=== PATIENT | male | born 1970 | race Caucasian/White ===

== ENCOUNTER 2021-01-03 10:26 | Inpatient (IN) | payer BC ==
--- NOTE | 2021-01-03 10:42 | EDM.PDOC ---
ED HPI GENERAL MEDICAL PROBLEM - General Chief Complaint: Abdominal Pain Stated Complaint: STOMACH PAINS/VOMIT Time Seen by Provider: 01/03/21 11:00 Source of Information: Reports: Patient History Limitations: Reports: No Limitations - History of Present Illness INITIAL COMMENTS - FREE TEXT/NARRATIVE: HISTORY AND PHYSICAL: History of present illness: Patient is a 50-year-old male who presents to the emergency room with complaints of right lower quadrant pain nausea and vomiting since last night. Patient states that the right lower quadrant pain now radiates throughout his abdomen but is more tender in the right lower quadrant. He has persistent nausea with one episode of vomiting last night. Last ate or drink yesterday evening around 7 PM. Patient denies any fever, chills, headache, change in vision, syncope or near syncope. Denies any chest pain, back pain, shortness of breath or cough. Denies any diarrhea, constipation or dysuria. Does not have any testicular pain, redness or swelling. Has not noted any blood in urine or stool. Patient has been eating and drinking appropriately. Review of systems: As per history of present illness and below otherwise all systems reviewed and negative. Past medical history: As per history of present illness and as reviewed below otherwise noncontributory. Surgical history: As per history of present illness and as reviewed below otherwise noncontributory. Social history: See social history for further information Family history: As per history of present illness and as reviewed below otherwise noncontribu tory. Physical exam: General: Well developed and well nourished 50 year old male. Alert and orientated x 3. Nontoxic in appearance and in no acute distress. Vital signs are stable and have been reviewed by me. Nursing notes were reviewed. HEENT: Atraumatic, normocephalic, pupils equal and reactive bilaterally, negative for conjunctival pallor or scleral icterus, mucous membranes moist, trachea midline. No drooling or trismus noted. No meningeal signs. No hot potato voice noted. Lungs: Clear to auscultation bilaterally. No wheezes, rales, or rhonchi. Chest nontender. Normal work of breathing, no accessory muscles used. Heart: S1S2, regular rate and rhythm without overt murmur, gallops, or rubs. No JVD. No peripheral edema Abdomen: Soft, nondistended, tender in all 4 quadrants -worse in the right lower quadrant with rebound tenderness. Normoactive bowel sounds. Negative for masses or costovertebral tenderness. Skin: Intact, warm, dry. No lesions or rashes noted. Hematologic: No petechiae or purpra. Mucosa appropriate color and normal nail bed color and refill. Extremities: Atraumatic, moves all extremities per self without difficulty or deficits, negative for cords or calf pain. Neurovascular unremarkable. Neuro: Awake, alert, oriented. Cranial nerves II through XII unremarkable. Cerebellum unremarkable. Motor and sensory unremarkable throughout. Exam nonfocal. Psychiatric: Mood and affect are appropriate. Normal thought process. Answering questions appropriately. Notes: *This patient was seen and evaluated during the 2019 SARS-CoV-2 novel coronavirus pandemic period. Community viral transmission is ongoing at time of this encounter and the emergency department is operating under pandemic response procedures. Patient is a 50-year-old male who presents to the emergency room with complaints of nausea, 1 episode of vomiting and right lower quadrant pain since yesterday evening. Patient is tender throughout his abdomen but worse to the right lower quadrant with rebound tenderness. He states he last ate or drink yesterday, he was educated on NPO status. We will do a CT of the abdomen and pelvis to rule out appendicitis. CT shows dilated and thickened appendix with adjacent inflammatory stranding consistent with acute appendicitis. Prostatomegaly with diffuse urinary bladder wall thickening. Liver and renal cysts. Dr Villatoro is aware and will see patient. I have talked with the patient about today's findings, in addition to providing specific details for plan of care. Reassessment at the time of disposition demonstrates that the patient is in no acute distress. IV Zosyn ordered. Patient will be Same Day Surgery. Diagnostics: CBC, CMP, UA, lipase, COVID-19, CT abdomen and pelvis Therapeutics: IV fluid, Dilaudid, Zofran, Morphine, Zosyn Impression: Acute Appendicitis Plan: To OR for surgery Definitive disposition and diagnosis as appropriate pending reevaluation and review of above. abd Pain Score (Numeric/FACES): 7 - Related Data Allergies Allergy/AdvReac Type Severity Reaction Status Date / Time No Known Allergies Allergy Verified 01/03/21 11:16 Home Meds: Home Meds . [No Known Home Meds] 01/03/21 [History] ED ROS GENERAL - Review of Systems Review Of Systems: Comprehensive ROS is negative, except as noted in HPI. ED EXAM, GI/ABD - Physical Exam Exam: See Below (See dictation) Course - Vital Signs Last Recorded V/S: Last Vital Signs Temp 98.1 F 01/03/21 16:00 Pulse 82 01/03/21 16:00 Resp 18 01/03/21 16:00 BP 132/78 01/03/21 16:00 Pulse Ox 97 01/03/21 16:00 - Orders/Labs/Meds Orders: Active Orders 24 hr Category Date Time Status Patient Status [ADT] Routine ADT 01/03/21 13:25 Active Blood Glucose Check, Bedside [RC] PRN Care 01/03/21 12:31 Active Intake and Output [RC] Q12H Care 01/03/21 13:26 Active Notify Provider Vital Signs [RC] ASDIRECTED Care 01/03/21 12:31 Active Overnight Pulse Oximetry [RC] Click to Edit Care 01/03/21 12:31 Active Oxygen Therapy [RC] PRN Care 01/03/21 12:31 Active Oxygen Therapy [RC] PRN Care 01/03/21 13:25 Active RT Aerosol Therapy [RC] ASDIRECTED Care 01/03/21 12:31 Active RT Aerosol Therapy [RC] ASDIRECTED Care 01/03/21 12:31 Active RT BiPAP/CPAP [RC] ASDIRECTED Care 01/03/21 12:31 Active RT Incentive Spirometry [RC] Q1HWA Care 01/03/21 13:25 Active Up ad Shireen [RC] ASDIRECTED Care 01/03/21 13:25 Active Verify Patient Consent Obtain [RC] ASDIRECTED Care 01/03/21 12:31 Active Vital Signs [RC] PER UNIT ROUTINE Care 01/03/21 13:25 Active Vital Signs [RC] Q5M Care 01/03/21 12:31 Active Nothing Per Oral Diet [DIET] Diet 01/03/21 Lunch Active Albuterol [Proventil Neb Soln] Med 01/03/21 12:31 Active 2.5 mg NEB ONETIME PRN HYDROmorphone [Dilaudid] Med 01/03/21 12:31 Active 0.5 mg IVPUSH Q10M PRN HYDROmorphone [Dilaudid] Med 01/03/21 13:32 Active 0.5 mg IVPUSH Q1H PRN Lactated Ringers [Ringers, Lactated] 1,000 ml Med 01/03/21 13:30 Active IV ASDIRECTED Lactated Ringers [Ringers, Lactated] 1,000 ml Med 01/03/21 14:00 Active IV ASDIRECTED Metoclopramide [Reglan] Med 01/03/21 12:31 Active 10 mg IVPUSH ONETIME PRN Metoclopramide [Reglan] Med 01/03/21 13:25 Active 10 mg IVPUSH Q6H PRN Morphine Med 01/03/21 12:31 Active 2 mg IVPUSH Q10M PRN Naloxone [Narcan] Med 01/03/21 12:31 Active 0.1 mg IVPUSH ASDIRECTED PRN Ondansetron [Zofran] Med 01/03/21 12:31 Active 4 mg IVPUSH ONETIME PRN Ondansetron [Zofran] Med 01/03/21 13:25 Active 4 mg IVPUSH Q6H PRN Piperacillin/Tazobactam [Piperacil-Tazobact] 3.375 gm Med 01/03/21 20:30 Active Sodium Chloride 0.9% [Normal Saline] 50 ml IV Q6H Promethazine [Phenergan] Med 01/03/21 13:25 Active 25 mg IM Q6H PRN Sodium Chloride 0.9% [Normal Saline] Med 01/03/21 13:25 Active 10 ml IV ASDIRECTED PRN Sodium Chloride 0.9% [Saline Flush] Med 01/03/21 13:25 Active 10 ml FLUSH ASDIRECTED PRN Sodium Chloride 0.9% [Saline Flush] Med 01/03/21 13:25 Active 2.5 ml FLUSH ASDIRECTED PRN diphenhydrAMINE [Benadryl] Med 01/03/21 13:25 Active 50 mg IVPUSH Q4H PRN droperidoL [Inapsine] Med 01/03/21 12:31 Active 0.625 mg IVPUSH ONETIME PRN fentaNYL [Sublimaze] Med 01/03/21 12:31 Active 50 mcg IVPUSH Q5M PRN Medication Administration Instruction [OM.PC] Routine Oth 01/03/21 12:31 Ordered Peripheral IV Insertion Adult [OM.PC] Urgent Oth 01/03/21 13:25 Ordered Pulse Oximetry Continuous Monitoring [OM.PC] Routine Oth 01/03/21 12:31 Ordered Resuscitation Status Routine Resus Stat 01/03/21 13:25 Ordered Medication Orders Albuterol (Albuterol 0.083% 2.5 Mg/3 Ml Neb Soln) 2.5 mg NEB ONETIME PRN PRN Reason: Wheezing Diphenhydramine HCl (Diphenhydramine 50 Mg/Ml Sdv) 50 mg IVPUSH Q4H PRN PRN Reason: Itching Droperidol (Droperidol 5 Mg/2 Ml Sdv) 0.625 mg IVPUSH ONETIME PRN PRN Reason: Nausea/Vomiting Fentanyl (Fentanyl 100 Mcg/2 Ml Sdv) 50 mcg IVPUSH Q5M PRN PRN Reason: Pain (mild 1-3) Hydromorphone HCl (Hydromorphone 2 Mg/Ml Syringe) 0.5 mg IVPUSH Q10M PRN PRN Reason: Pain (moderate 4-6) Hydromorphone HCl (Hydromorphone 1 Mg/Ml Syringe) 0.5 mg IVPUSH Q1H PRN PRN Reason: Pain (severe 7-10) Last Admin: 01/03/21 16:16 Dose: 0.5 mg Documented by: Admin: 01/03/21 14:50 Dose: 0.5 mg Documented by: JOE Lactated Ringer's (Ringers, Lactated) 1,000 mls @ 125 mls/hr IV ASDIRECTED [facility] Piperacillin Sod/Tazobactam (Sod 3.375 gm/ Sodium Chloride) 50 mls @ 100 mls/hr IV Q6H [facility] Lactated Ringer's (Ringers, Lactated) 1,000 mls @ 125 mls/hr IV ASDIRECTED SANDEE Last Admin: 01/03/21 14:48 Dose: 125 mls/hr Documented by: JOE Metoclopramide HCl (Metoclopramide 10 Mg/2 Ml Sdv) 10 mg IVPUSH ONETIME PRN PRN Reason: Nausea/Vomiting Metoclopramide HCl (Metoclopramide 10 Mg/2 Ml Sdv) 10 mg IVPUSH Q6H PRN PRN Reason: Nausea Morphine Sulfate (Morphine 2 Mg/Ml Syringe) 2 mg IVPUSH Q10M PRN PRN Reason: Pain (severe 7-10) Naloxone HCl (Naloxone 0.4 Mg/Ml Syringe) 0.1 mg IVPUSH ASDIRECTED PRN PRN Reason: Respiratory Depression Ondansetron HCl (Ondansetron 4 Mg/2 Ml Sdv) 4 mg IVPUSH ONETIME PRN PRN Reason: Nausea/Vomiting Ondansetron HCl (Ondansetron 4 Mg/2 Ml Sdv) 4 mg IVPUSH Q6H PRN PRN Reason: Nausea/Vomiting Promethazine HCl (Promethazine 25 Mg/Ml Sdv) 25 mg IM Q6H PRN PRN Reason: Nausea Sodium Chloride (Sodium Chloride 0.9% 10 Ml Syringe) 10 ml FLUSH ASDIRECTED PRN PRN Reason: Keep Vein Open Sodium Chloride (Sodium Chloride 0.9% 2.5 Ml Syringe) 2.5 ml FLUSH ASDIRECTED PRN PRN Reason: Keep Vein Open Sodium Chloride (Sodium Chloride 0.9% 10 Ml Sdv) 10 ml IV ASDIRECTED PRN PRN Reason: IV Use Labs: Laboratory Tests 01/03/21 01/03/21 01/03/21 Range/Units 11:04 11:04 11:20 WBC 17.57 H (4.0-11.0) K/uL RBC 4.84 (4.50-5.90) M/uL Hgb 15.9 (13.0-17.0) g/dL Hct 45.3 (38.0-50.0) % MCV 93.6 (80.0-98.0) fL MCH 32.9 H (27.0-32.0) pg MCHC 35.1 (31.0-37.0) g/dL RDW Std Deviation 43.1 (28.0-62.0) fl RDW Coeff of Ben 13 (11.0-15.0) % Plt Count 307 (150-400) K/uL MPV 9.20 (7.40-12.00) fL Neut % (Auto) 87.7 H (48.0-80.0) % Lymph % (Auto) 5.7 L (16.0-40.0) % Steele % (Auto) 6.5 (0.0-15.0) % Eos % (Auto) 0.0 (0.0-7.0) % Baso % (Auto) 0.1 (0.0-1.5) % Neut # (Auto) 15.4 H (1.4-5.7) K/uL Lymph # (Auto) 1.0 (0.6-2.4) K/uL [place] # (Auto) 1.1 H (0.0-0.8) K/uL Eos # (Auto) 0.0 (0.0-0.7) K/uL Baso # (Auto) 0.0 (0.0-0.1) K/uL Nucleated RBC % 0.0 /100WBC Nucleated RBCs # 0 K/uL Sodium 138 (136-148) mmol/L Potassium 4.2 (3.5-5.1) mmol/L Chloride 101 (98-107) mmol/L Carbon Dioxide 27.3 (21.0-32.0) mmol/L BUN 17 (7.0-18.0) mg/dL Creatinine 1.1 (0.8-1.3) mg/dL Est Cr Clr Drug Dosing TNP Estimated GFR (MDRD) > 60.0 ml/min Glucose 114 H (74-106) mg/dL Calcium 9.5 (8.5-10.1) mg/dL Total Bilirubin 1.0 (0.2-1.0) mg/dL AST 34 (15-37) IU/L ALT 57 (14-63) IU/L Alkaline Phosphatase 81 (46-116) U/L Total Protein 8.4 H (6.4-8.2) g/dL Albumin 4.4 (3.4-5.0) g/dL Globulin 4.0 (2.6-4.0) g/dL Albumin/Globulin Ratio 1.1 (0.9-1.6) Lipase 44 L (73-393) U/L Urine Color YELLOW Urine Appearance HAZY Urine pH 7.0 (5.0-8.0) Ur Specific [place] 1.025 (1.001-1.035) Urine Protein TRACE H (NEGATIVE) mg/dL Urine Glucose (UA) NEGATIVE (NEGATIVE) mg/dL Urine Ketones NEGATIVE (NEGATIVE) mg/dL Urine Occult Blood SMALL H (NEGATIVE) Urine Nitrite NEGATIVE (NEGATIVE) Urine Bilirubin NEGATIVE (NEGATIVE) Urine Urobilinogen 0.2 (<2.0) EU/dL Ur Leukocyte Esterase NEGATIVE (NEGATIVE) Urine RBC 3-5 (0-2/HPF) Urine WBC 0-1 (0-5/HPF) Ur Epithelial Cells RARE (NONE-FEW) Urine Bacteria FEW (NEGATIVE) SARS-CoV-2 RNA (RICHARD) (NEGATIVE) 01/03/21 Range/Units 11:26 WBC (4.0-11.0) K/uL RBC (4.50-5.90) M/uL Hgb (13.0-17.0) g/dL Hct (38.0-50.0) % MCV (80.0-98.0) fL MCH (27.0-32.0) pg MCHC (31.0-37.0) g/dL RDW Std Deviation (28.0-62.0) fl RDW Coeff of Ben (11.0-15.0) % Plt Count (150-400) K/uL MPV (7.40-12.00) fL Neut % (Auto) (48.0-80.0) % Lymph % (Auto) (16.0-40.0) % Steele % (Auto) (0.0-15.0) % Eos % (Auto) (0.0-7.0) % Baso % (Auto) (0.0-1.5) % Neut # (Auto) (1.4-5.7) K/uL Lymph # (Auto) (0.6-2.4) K/uL [place] # (Auto) (0.0-0.8) K/uL Eos # (Auto) (0.0-0.7) K/uL Baso # (Auto) (0.0-0.1) K/uL Nucleated RBC % /100WBC Nucleated RBCs # K/uL Sodium (136-148) mmol/L Potassium (3.5-5.1) mmol/L Chloride (98-107) mmol/L Carbon Dioxide (21.0-32.0) mmol/L BUN (7.0-18.0) mg/dL Creatinine (0.8-1.3) mg/dL Est Cr Clr Drug Dosing Estimated GFR (MDRD) ml/min Glucose (74-106) mg/dL Calcium (8.5-10.1) mg/dL Total Bilirubin (0.2-1.0) mg/dL AST (15-37) IU/L ALT (14-63) IU/L Alkaline Phosphatase (46-116) U/L Total Protein (6.4-8.2) g/dL Albumin (3.4-5.0) g/dL Globulin (2.6-4.0) g/dL Albumin/Globulin Ratio (0.9-1.6) Lipase (73-393) U/L Urine Color Urine Appearance Urine pH (5.0-8.0) Ur Specific [place] (1.001-1.035) Urine Protein (NEGATIVE) mg/dL Urine Glucose (UA) (NEGATIVE) mg/dL Urine Ketones (NEGATIVE) mg/dL Urine Occult Blood (NEGATIVE) Urine Nitrite (NEGATIVE) Urine Bilirubin (NEGATIVE) Urine Urobilinogen (<2.0) EU/dL Ur Leukocyte Esterase (NEGATIVE) Urine RBC (0-2/HPF) Urine WBC (0-5/HPF) Ur Epithelial Cells (NONE-FEW) Urine Bacteria (NEGATIVE) SARS-CoV-2 RNA (RICHARD) NEGATIVE (NEGATIVE) Meds: Medications Generic Name Dose Route Start Last Admin Trade Name Freq PRN Reason Stop Dose Admin Albuterol 2.5 mg 01/03/21 12:31 Albuterol 0.083% 2.5 Mg/3 Ml Neb Soln NEB ONETIME PRN Wheezing Diphenhydramine HCl 50 mg 01/03/21 13:25 Diphenhydramine 50 Mg/Ml Sdv IVPUSH Q4H PRN Itching Droperidol 0.625 mg 01/03/21 12:31 Droperidol 5 Mg/2 Ml Sdv IVPUSH ONETIME PRN Nausea/Vomiting Fentanyl 50 mcg 01/03/21 12:31 Fentanyl 100 Mcg/2 Ml Sdv IVPUSH Q5M PRN Pain (mild 1-3) Hydromorphone HCl 0.5 mg 01/03/21 12:31 Hydromorphone 2 Mg/Ml Syringe IVPUSH Q10M PRN Pain (moderate 4-6) Hydromorphone HCl 0.5 mg 01/03/21 13:32 01/03/21 16:16 Hydromorphone 1 Mg/Ml Syringe IVPUSH 0.5 mg Q1H PRN Administration Pain (severe 7-10) Lactated Ringer's 1,000 mls @ 125 mls/hr 01/03/21 13:30 Ringers, Lactated IV ASDIRECTED SANDEE Piperacillin Sod/Tazobactam 50 mls @ 100 mls/hr 01/03/21 20:30 Sod 3.375 gm/ Sodium Chloride IV Q6H [facility] Lactated Ringer's 1,000 mls @ 125 mls/hr 01/03/21 14:00 01/03/21 14:48 Ringers, Lactated IV 125 mls/hr ASDIRECTED SANDEE Administration Metoclopramide HCl 10 mg 01/03/21 12:31 Metoclopramide 10 Mg/2 Ml Sdv IVPUSH ONETIME PRN Nausea/Vomiting Metoclopramide HCl 10 mg 01/03/21 13:25 Metoclopramide 10 Mg/2 Ml Sdv IVPUSH Q6H PRN Nausea Morphine Sulfate 2 mg 01/03/21 12:31 Morphine 2 Mg/Ml Syringe IVPUSH Q10M PRN Pain (severe 7-10) Naloxone HCl 0.1 mg 01/03/21 12:31 Naloxone 0.4 Mg/Ml Syringe IVPUSH ASDIRECTED PRN Respiratory Depression Ondansetron HCl 4 mg 01/03/21 12:31 Ondansetron 4 Mg/2 Ml Sdv IVPUSH ONETIME PRN Nausea/Vomiting Ondansetron HCl 4 mg 01/03/21 13:25 Ondansetron 4 Mg/2 Ml Sdv IVPUSH Q6H PRN Nausea/Vomiting Promethazine HCl 25 mg 01/03/21 13:25 Promethazine 25 Mg/Ml Sdv IM Q6H PRN Nausea Sodium Chloride 10 ml 01/03/21 13:25 Sodium Chloride 0.9% 10 Ml Syringe FLUSH ASDIRECTED PRN Keep Vein Open Sodium Chloride 2.5 ml 01/03/21 13:25 Sodium Chloride 0.9% 2.5 Ml Syringe FLUSH ASDIRECTED PRN Keep Vein Open Sodium Chloride 10 ml 01/03/21 13:25 Sodium Chloride 0.9% 10 Ml Sdv IV ASDIRECTED PRN IV Use Discontinued Medications Generic Name Dose Route Start Last Admin Trade Name Freq PRN Reason Stop Dose Admin Bupivacaine HCl Confirm 01/03/21 15:33 Bupivacaine 0.5% 30 Ml Sdv Administered 01/03/21 15:34 Dose 30 ml .ROUTE .STK-MED ONE Fentanyl Confirm 01/03/21 16:11 Fentanyl 250 Mcg/5 Ml Sdv Administered 01/03/21 16:12 Dose 250 mcg .ROUTE .STK-MED ONE Glycopyrrolate Confirm 01/03/21 16:12 Glycopyrrolate 0.2 Mg/Ml Sdv Administered 01/03/21 16:13 Dose 0.2 mg .ROUTE .STK-MED ONE Hydromorphone HCl 1 mg 01/03/21 10:51 01/03/21 11:08 Hydromorphone 1 Mg/Ml Syringe IVPUSH 01/03/21 10:52 1 mg ONETIME ONE Administration Sodium Chloride 1,000 mls @ 999 mls/hr 01/03/21 10:51 01/03/21 11:08 Normal Saline IV 01/03/21 11:51 999 mls/hr STAT ONE Administration Piperacillin Sod/Tazobactam 50 mls @ 100 mls/hr 01/03/21 13:01 01/03/21 14:10 Sod 3.375 gm/ Sodium Chloride IV 01/03/21 13:30 100 mls/hr ONETIME ONE Administration Ketorolac Tromethamine Confirm 01/03/21 16:12 Ketorolac 30 Mg/Ml Sdv Administered 01/03/21 16:13 Dose 30 mg .ROUTE .STK-MED ONE Lidocaine Confirm 01/03/21 16:12 Lidocaine 2% 5 Ml Sdv Administered 01/03/21 16:13 Dose 5 ml .ROUTE .STK-MED ONE Midazolam HCl Confirm 01/03/21 16:11 Midazolam 1 Mg/Ml 2 Ml Sdv Administered 01/03/21 16:12 Dose 2 mg .ROUTE .STK-MED ONE Morphine Sulfate 4 mg 01/03/21 12:49 01/03/21 13:07 Morphine 4 Mg/Ml Syringe IVPUSH 01/03/21 12:50 4 mg ONETIME ONE Administration Octyl Cyanoacrylate Confirm 01/03/21 15:33 Octyl 2-Cyanoacrylate 1 Tube Administered 01/03/21 15:34 Dose 1 applic .ROUTE .STK-MED ONE Ondansetron HCl 4 mg 01/03/21 10:51 01/03/21 11:08 Ondansetron 4 Mg/2 Ml Sdv IVPUSH 01/03/21 10:52 4 mg ONETIME ONE Administration Ondansetron HCl 4 mg 01/03/21 12:49 01/03/21 13:12 Ondansetron 4 Mg/2 Ml Sdv IVPUSH 01/03/21 12:50 4 mg ONETIME ONE Administration Ondansetron HCl Confirm 01/03/21 16:12 Ondansetron 4 Mg/2 Ml Sdv Administered 01/03/21 16:13 Dose 4 mg .ROUTE .STK-MED ONE Propofol Confirm 01/03/21 16:11 Propofol 200 Mg/20 Ml Sdv Administered 01/03/21 16:12 Dose 200 mg .ROUTE .STK-MED ONE Rocuronium [place] Confirm 01/03/21 16:12 Rocuronium [place] 50 Mg/5 Ml Syringe Administered 01/03/21 16:13 Dose 50 mg .ROUTE .STK-MED ONE Scopolamine 1.5 mg 01/03/21 15:45 01/03/21 16:08 Scopolamine 1.5 Mg Transdermal Patch TRDERM 01/03/21 15:46 1.5 mg ONETIME ONE Administration Sugammadex Sodium Confirm 01/03/21 16:12 Sugammadex Sodium 200 Mg/2 Ml Vial Administered 01/03/21 16:13 Dose 200 mg .ROUTE .STK-MED ONE Departure - Departure Time of Disposition: 17:09 Disposition: Still A Patient 30 Clinical Impression: Appendicitis - Discharge Information Sepsis Event Note (ED) - Focused Exam Vital Signs: Vital Signs Temp Pulse Resp BP Pulse Ox Pulse Ox 01/03/21 16:00 98.1 F 82 18 132/78 97 01/03/21 14:28 98 01/03/21 12:31 73 16 106/64 98 01/03/21 11:17 96.4 F L 80 16 135/91 H 96 - My Orders Last 24 Hours: My Active Orders 01/03/21 14:00 Lactated Ringers [Ringers, Lactated] 1,000 ml IV ASDIRECTED - Assessment/Plan Last 24 Hours: My Active Orders 01/03/21 14:00 Lactated Ringers [Ringers, Lactated] 1,000 ml IV ASDIRECTED
[2021-01-03] MEDS ORDERED: Sodium Chloride 0.9% 1,000 ML IV ONE (10:51)
[2021-01-03] MEDS ORDERED: Ondansetron 4 MG/2 ML SDV IVPUSH ONE ×2 (10:51→12:49)
[2021-01-03] MEDS ORDERED: HYDROmorphone 1 MG/ML Syringe IVPUSH ONE (10:51)
[2021-01-03 11:42] LABS: BLOOD UREA NITROGEN,BUN 17 mg/dL (7.0-18.0); CARBON DIOXIDE,CO2 27.3 mmol/L (21.0-32.0); CHLORIDE,CL 101 mmol/L (98-107); GLUCOSE RANDOM 114 mg/dL (74-106); LIPASE 44 U/L (73-393); POTASSIUM,K 4.2 mmol/L (3.5-5.1); SODIUM,NA 138 mmol/L (136-148)
[2021-01-03] MEDS ORDERED: Morphine 2 MG/ML SYRINGE IVPUSH PRN (12:31)
[2021-01-03] MEDS ORDERED: Metoclopramide 10 MG/2 ML SDV IVPUSH PRN ×2 (12:31→13:25)
[2021-01-03] MEDS ORDERED: Albuterol 0.083% 2.5 MG/3 ML Neb Soln NEB PRN (12:31)
[2021-01-03] MEDS ORDERED: fentaNYL 100 MCG/2 ML SDV IVPUSH PRN ×2 (12:31→17:28)
[2021-01-03] MEDS ORDERED: Scopolamine 1.5 MG Transdermal Patch TRDERM ONE ×2 (12:31→15:45)
[2021-01-03] MEDS ORDERED: Naloxone 0.4 MG/ML Syringe IVPUSH PRN (12:31)
[2021-01-03] MEDS ORDERED: HYDROmorphone 2 MG/ML Syringe IVPUSH PRN (12:31)
[2021-01-03] MEDS ORDERED: Ondansetron 4 MG/2 ML SDV IVPUSH PRN (12:31)
[2021-01-03] MEDS ORDERED: Morphine 4 MG/ML Syringe IVPUSH ONE (12:49)
[2021-01-03] MEDS ORDERED: Piperacillin/Tazobactam 3.375 GM in Sodium Chloride 0.9% 50 ML IV ONE (13:01)
--- NOTE | 2021-01-03 13:10 | PCM.PREANE ---
Preanesthetic Assessment - Anesthesia/Transfusion/Family Hx Anesthesia History: Prior Anesthesia Without Reaction Family History of Anesthesia Reaction: No Transfusion History: No Prior Transfusion(s) - Review of Systems General: No Symptoms Pulmonary: No Symptoms Cardiovascular: No Symptoms Gastrointestinal: Abdominal Pain, Nausea Neurological: No Symptoms Other: Reports: None - Physical Assessment NPO Status Date: 01/03/21 NPO Status Time: 06:00 Vital Signs: Last Vital Signs Temp 96.4 F L 01/03/21 11:17 Pulse 73 01/03/21 12:31 Resp 16 01/03/21 12:31 BP 106/64 01/03/21 12:31 Pulse Ox 98 01/03/21 12:31 Weight: 180 lb ASA Class: 2E Mental Status: Alert & Oriented x3 Airway Class: Mallampati = 2 Dentition: Reports: Normal Dentition ROM/Head Extension: Full Lungs: Clear to Auscultation, Normal Respiratory Effort Cardiovascular: Regular Rate, Regular Rhythm - Lab Values: Laboratory Last Values WBC 17.57 K/uL (4.0-11.0) H 01/03/21 11:04 RBC 4.84 M/uL (4.50-5.90) 01/03/21 11:04 Hgb 15.9 g/dL (13.0-17.0) 01/03/21 11:04 Hct 45.3 % (38.0-50.0) 01/03/21 11:04 MCV 93.6 fL (80.0-98.0) 01/03/21 11:04 MCH 32.9 pg (27.0-32.0) H 01/03/21 11:04 MCHC 35.1 g/dL (31.0-37.0) 01/03/21 11:04 RDW Std Deviation 43.1 fl (28.0-62.0) 01/03/21 11:04 RDW Coeff of Ben 13 % (11.0-15.0) 01/03/21 11:04 Plt Count 307 K/uL (150-400) 01/03/21 11:04 MPV 9.20 fL (7.40-12.00) 01/03/21 11:04 Neut % (Auto) 87.7 % (48.0-80.0) H 01/03/21 11:04 Lymph % (Auto) 5.7 % (16.0-40.0) L 01/03/21 11:04 [place] % (Auto) 6.5 % (0.0-15.0) 01/03/21 11:04 Eos % (Auto) 0.0 % (0.0-7.0) 01/03/21 11:04 Baso % (Auto) 0.1 % (0.0-1.5) 01/03/21 11:04 Neut # (Auto) 15.4 K/uL (1.4-5.7) H 01/03/21 11:04 Lymph # (Auto) 1.0 K/uL (0.6-2.4) 01/03/21 11:04 [place] # (Auto) 1.1 K/uL (0.0-0.8) H 01/03/21 11:04 Eos # (Auto) 0.0 K/uL (0.0-0.7) 01/03/21 11:04 Baso # (Auto) 0.0 K/uL (0.0-0.1) 01/03/21 11:04 Nucleated RBC % 0.0 /100WBC 01/03/21 11:04 Nucleated RBCs # 0 K/uL 01/03/21 11:04 Sodium 138 mmol/L (136-148) 01/03/21 11:04 Potassium 4.2 mmol/L (3.5-5.1) 01/03/21 11:04 Chloride 101 mmol/L (98-107) 01/03/21 11:04 Carbon Dioxide 27.3 mmol/L (21.0-32.0) 01/03/21 11:04 BUN 17 mg/dL (7.0-18.0) 01/03/21 11:04 Creatinine 1.1 mg/dL (0.8-1.3) 01/03/21 11:04 Est Cr Clr Drug Dosing TNP 01/03/21 11:04 Estimated GFR (MDRD) > 60.0 ml/min 01/03/21 11:04 Glucose 114 mg/dL (74-106) H 01/03/21 11:04 Calcium 9.5 mg/dL (8.5-10.1) 01/03/21 11:04 Total Bilirubin 1.0 mg/dL (0.2-1.0) 01/03/21 11:04 AST 34 IU/L (15-37) 01/03/21 11:04 ALT 57 IU/L (14-63) 01/03/21 11:04 Alkaline Phosphatase 81 U/L (46-116) 01/03/21 11:04 Total Protein 8.4 g/dL (6.4-8.2) H 01/03/21 11:04 Albumin 4.4 g/dL (3.4-5.0) 01/03/21 11:04 Globulin 4.0 g/dL (2.6-4.0) 01/03/21 11:04 Albumin/Globulin Ratio 1.1 (0.9-1.6) 01/03/21 11:04 Lipase 44 U/L (73-393) L 01/03/21 11:04 Urine Color YELLOW 01/03/21 11:20 Urine Appearance HAZY 01/03/21 11:20 Urine pH 7.0 (5.0-8.0) 01/03/21 11:20 Ur Specific [place] 1.025 (1.001-1.035) 01/03/21 11:20 Urine Protein TRACE mg/dL (NEGATIVE) H 01/03/21 11:20 Urine Glucose (UA) NEGATIVE mg/dL (NEGATIVE) 01/03/21 11:20 Urine Ketones NEGATIVE mg/dL (NEGATIVE) 01/03/21 11:20 Urine Occult Blood SMALL (NEGATIVE) H 01/03/21 11:20 Urine Nitrite NEGATIVE (NEGATIVE) 01/03/21 11:20 Urine Bilirubin NEGATIVE (NEGATIVE) 01/03/21 11:20 Urine Urobilinogen 0.2 EU/dL (<2.0) 01/03/21 11:20 Ur Leukocyte Esterase NEGATIVE (NEGATIVE) 01/03/21 11:20 Urine RBC 3-5 (0-2/HPF) 01/03/21 11:20 Urine WBC 0-1 (0-5/HPF) 01/03/21 11:20 Ur Epithelial Cells RARE (NONE-FEW) 01/03/21 11:20 Urine Bacteria FEW (NEGATIVE) 01/03/21 11:20 SARS-CoV-2 RNA (RICHARD) NEGATIVE (NEGATIVE) 01/03/21 11:26 - Allergies Allergies/Adverse Reactions: Allergies Allergy/AdvReac Type Severity Reaction Status Date / Time No Known Allergies Allergy Verified 01/03/21 11:16 - Acknowledgements Anesthesia Type Planned: General Anesthesia Pt an Appropriate Candidate for the Planned Anesthesia: Yes Alternatives and Risks of Anesthesia Discussed w Pt/Guardian: Yes Pt/Guardian Understands and Agrees with Anesthesia Plan: Yes PreAnesthesia Questionnaire - Past Health History Medical/Surgical History: Denies Medical/Surgical History - Infectious Disease History Infectious Disease History: Reports: Chicken Pox - SUBSTANCE USE Tobacco Use Within Last Twelve Months: Cigarettes - HOME MEDS Home Medications: Home Meds . [No Known Home Meds] 01/03/21 [History] - CURRENT (IN HOUSE) MEDS Current Meds: Current Medications Albuterol (Albuterol 0.083% 2.5 Mg/3 Ml Neb Soln) 2.5 mg NEB ONETIME PRN PRN Reason: Wheezing Droperidol (Droperidol 5 Mg/2 Ml Sdv) 0.625 mg IVPUSH ONETIME PRN PRN Reason: Nausea/Vomiting Fentanyl (Fentanyl 100 Mcg/2 Ml Sdv) 50 mcg IVPUSH Q5M PRN PRN Reason: Pain (mild 1-3) Hydromorphone HCl (Hydromorphone 2 Mg/Ml Syringe) 0.5 mg IVPUSH Q10M PRN PRN Reason: Pain (moderate 4-6) Piperacillin Sod/Tazobactam (Sod 3.375 gm/ Sodium Chloride) 50 mls @ 100 mls/hr IV ONETIME ONE Stop: 01/03/21 13:30 Metoclopramide HCl (Metoclopramide 10 Mg/2 Ml Sdv) 10 mg IVPUSH ONETIME PRN PRN Reason: Nausea/Vomiting Morphine Sulfate (Morphine 2 Mg/Ml Syringe) 2 mg IVPUSH Q10M PRN PRN Reason: Pain (severe 7-10) Naloxone HCl (Naloxone 0.4 Mg/Ml Syringe) 0.1 mg IVPUSH ASDIRECTED PRN PRN Reason: Respiratory Depression Ondansetron HCl (Ondansetron 4 Mg/2 Ml Sdv) 4 mg IVPUSH ONETIME PRN PRN Reason: Nausea/Vomiting Discontinued Medications Hydromorphone HCl (Hydromorphone 1 Mg/Ml Syringe) 1 mg IVPUSH ONETIME ONE Stop: 01/03/21 10:52 Last Admin: 01/03/21 11:08 Dose: 1 mg Documented by: Sodium Chloride (Normal Saline) 1,000 mls @ 999 mls/hr IV STAT ONE Stop: 01/03/21 11:51 Last Admin: 01/03/21 11:08 Dose: 999 mls/hr Documented by: Morphine Sulfate (Morphine 4 Mg/Ml Syringe) 4 mg IVPUSH ONETIME ONE Stop: 01/03/21 12:50 Ondansetron HCl (Ondansetron 4 Mg/2 Ml Sdv) 4 mg IVPUSH ONETIME ONE Stop: 01/03/21 10:52 Last Admin: 01/03/21 11:08 Dose: 4 mg Documented by: Ondansetron HCl (Ondansetron 4 Mg/2 Ml Sdv) 4 mg IVPUSH ONETIME ONE Stop: 01/03/21 12:50 Scopolamine (Scopolamine 1.5 Mg Transdermal Patch) 0 mg TRDERM ONETIME ONE Stop: 01/03/21 12:32
--- NOTE | 2021-01-03 13:10 | CT ---
INDICATION: Lower quadrant pain TECHNIQUE: CT abdomen and pelvis acquired with IV contrast. 100 cc Omnipaque [id number] COMPARISON: None FINDINGS: Lower chest: Unremarkable. Liver: 1.0 centimeter right liver cyst. Spleen: Unremarkable. Pancreas: Unremarkable. Gallbladder and bile ducts: Unremarkable. Kidneys: Bilateral renal cysts. Adrenal glands: Unremarkable. GI tract: Unremarkable. Dilated thick-walled appendix measuring up to 14.0 centimeters in diameter with adjacent inflammatory stranding consistent with acute appendicitis. Probable appendicolith. Vascular structures: Unremarkable. Lymph nodes: Unremarkable. Miscellaneous: Unremarkable. No free air or significant free fluid. Pelvic Organs: Prostatomegaly with diffuse urinary bladder wall thickening. Bones: Unremarkable for age. IMPRESSION: Dilated and thickened appendix with adjacent inflammatory stranding consistent with acute appendicitis. Prostatomegaly with diffuse urinary bladder wall thickening. Liver and renal cysts. Please note that all CT scans at this facility use dose modulation, iterative reconstruction, and/or weight-based dosing when appropriate to reduce radiation dose to as low as reasonably achievable. Dictated by Colby Stearns MD @ 01/03/2021 1:08:[address] Colby Stearns @ Jan 03 2021 1:08PM
[2021-01-03] MEDS ORDERED: Sodium Chloride 0.9% 2.5 ML Syringe FLUSH PRN (13:25)
[2021-01-03] MEDS ORDERED: diphenhydrAMINE 50 MG/ML SDV IVPUSH PRN (13:25)
[2021-01-03] MEDS ORDERED: Sodium Chloride 0.9% 10 ML Syringe FLUSH PRN (13:25)
[2021-01-03] MEDS ORDERED: Promethazine 25 MG/ML SDV IM PRN (13:25)
[2021-01-03] MEDS ORDERED: Sodium Chloride 0.9% 10 ML SDV IV PRN (13:25)
--- NOTE | 2021-01-03 13:29 | PCM.HP.2 ---
H&P History of Present Illness - General Date of Service: 01/03/21 Admit Problem/Dx: Admission Diagnosis/Problem Admission Diagnosis/Problem Appendicitis Source of Information: Patient History Limitations: Reports: No Limitations - History of Present Illness Initial Comments - Free Text/Narative: 50-year-old male who presented to the emergency room with complaints of right l ower quadrant pain nausea and vomiting since last night. He has persistent nausea with one episode of vomiting last night. Patient denies any fever, chills. Pain became more severe and located in the right lower quadrant. He came to the ER. His CT scan showed an enlarged and inflamed appendix consistent with acute appendicitis. His WBC was elevated with a left shift. He was incidentally found to have an enlarged prostate. abd Pain Score (Numeric/FACES): 7 - Related Data Allergies/Adverse Reactions: Allergies Allergy/AdvReac Type Severity Reaction Status Date / Time No Known Allergies Allergy Verified 01/03/21 11:16 Home Medications: Home Meds . [No Known Home Meds] 01/03/21 [History] Past Medical History - Past Health History Medical/Surgical History: Denies Medical/Surgical History - Infectious Disease History Infectious Disease History: Reports: Chicken Pox - Past Surgical History HEENT Surgical History: Reports: Other (See Below) (wisdom teeth) Social & Family History - Family History Family Medical History: No Pertinent Family History H&P Review of Systems - Review of Systems: Review Of Systems: Comprehensive ROS is negative, except as noted in HPI. Exam - Exam Exam: See Below - Vital Signs Vital Signs: Last Vital Signs Temp 35.8 C L 01/03/21 11:17 Pulse 73 01/03/21 12:31 Resp 16 01/03/21 12:31 BP 106/64 01/03/21 12:31 Pulse Ox 98 01/03/21 12:31 Weight: 81.647 kg - Exam Quality Assessment: Supplemental Oxygen General: Alert, Oriented, Mild Distress HEENT: Conjunctiva Clear, Mucosa Moist & [place], Posterior Pharynx Clear Lungs: Clear to Auscultation, Normal Respiratory Effort Cardiovascular: Regular Rate, Regular Rhythm GI/Abdominal Exam: Soft, Other (Small hernia at umbilicus. Tender with rebound in RLQ. ) - Patient Data Lab Results Last 24 hrs: Laboratory Results - last 24 hr 01/03/21 01/03/21 01/03/21 Range/Units 11:04 11:04 11:20 WBC 17.57 H (4.0-11.0) K/uL RBC 4.84 (4.50-5.90) M/uL Hgb 15.9 (13.0-17.0) g/dL Hct 45.3 (38.0-50.0) % MCV 93.6 (80.0-98.0) fL MCH 32.9 H (27.0-32.0) pg MCHC 35.1 (31.0-37.0) g/dL RDW Std Deviation 43.1 (28.0-62.0) fl RDW Coeff of Ben 13 (11.0-15.0) % Plt Count 307 (150-400) K/uL MPV 9.20 (7.40-12.00) fL Neut % (Auto) 87.7 H (48.0-80.0) % Lymph % (Auto) 5.7 L (16.0-40.0) % [place] % (Auto) 6.5 (0.0-15.0) % Eos % (Auto) 0.0 (0.0-7.0) % Baso % (Auto) 0.1 (0.0-1.5) % Neut # (Auto) 15.4 H (1.4-5.7) K/uL Lymph # (Auto) 1.0 (0.6-2.4) K/uL [place] # (Auto) 1.1 H (0.0-0.8) K/uL Eos # (Auto) 0.0 (0.0-0.7) K/uL Baso # (Auto) 0.0 (0.0-0.1) K/uL Nucleated RBC % 0.0 /100WBC Nucleated RBCs # 0 K/uL Sodium 138 (136-148) mmol/L Potassium 4.2 (3.5-5.1) mmol/L Chloride 101 (98-107) mmol/L Carbon Dioxide 27.3 (21.0-32.0) mmol/L BUN 17 (7.0-18.0) mg/dL Creatinine 1.1 (0.8-1.3) mg/dL Est Cr Clr Drug Dosing TNP Estimated GFR (MDRD) > 60.0 ml/min Glucose 114 H (74-106) mg/dL Calcium 9.5 (8.5-10.1) mg/dL Total Bilirubin 1.0 (0.2-1.0) mg/dL AST 34 (15-37) IU/L ALT 57 (14-63) IU/L Alkaline Phosphatase 81 (46-116) U/L Total Protein 8.4 H (6.4-8.2) g/dL Albumin 4.4 (3.4-5.0) g/dL Globulin 4.0 (2.6-4.0) g/dL Albumin/Globulin Ratio 1.1 (0.9-1.6) Lipase 44 L (73-393) U/L Urine Color YELLOW Urine Appearance HAZY Urine pH 7.0 (5.0-8.0) Ur Specific [place] 1.025 (1.001-1.035) Urine Protein TRACE H (NEGATIVE) mg/dL Urine Glucose (UA) NEGATIVE (NEGATIVE) mg/dL Urine Ketones NEGATIVE (NEGATIVE) mg/dL Urine Occult Blood SMALL H (NEGATIVE) Urine Nitrite NEGATIVE (NEGATIVE) Urine Bilirubin NEGATIVE (NEGATIVE) Urine Urobilinogen 0.2 (<2.0) EU/dL Ur Leukocyte Esterase NEGATIVE (NEGATIVE) Urine RBC 3-5 (0-2/HPF) Urine WBC 0-1 (0-5/HPF) Ur Epithelial Cells RARE (NONE-FEW) Urine Bacteria FEW (NEGATIVE) SARS-CoV-2 RNA (RICHARD) (NEGATIVE) 01/03/21 Range/Units 11:26 WBC (4.0-11.0) K/uL RBC (4.50-5.90) M/uL Hgb (13.0-17.0) g/dL Hct (38.0-50.0) % MCV (80.0-98.0) fL MCH (27.0-32.0) pg MCHC (31.0-37.0) g/dL RDW Std Deviation (28.0-62.0) fl RDW Coeff of Ben (11.0-15.0) % Plt Count (150-400) K/uL MPV (7.40-12.00) fL Neut % (Auto) (48.0-80.0) % Lymph % (Auto) (16.0-40.0) % [place] % (Auto) (0.0-15.0) % Eos % (Auto) (0.0-7.0) % Baso % (Auto) (0.0-1.5) % Neut # (Auto) (1.4-5.7) K/uL Lymph # (Auto) (0.6-2.4) K/uL [place] # (Auto) (0.0-0.8) K/uL Eos # (Auto) (0.0-0.7) K/uL Baso # (Auto) (0.0-0.1) K/uL Nucleated RBC % /100WBC Nucleated RBCs # K/uL Sodium (136-148) mmol/L Potassium (3.5-5.1) mmol/L Chloride (98-107) mmol/L Carbon Dioxide (21.0-32.0) mmol/L BUN (7.0-18.0) mg/dL Creatinine (0.8-1.3) mg/dL Est Cr Clr Drug Dosing Estimated GFR (MDRD) ml/min Glucose (74-106) mg/dL Calcium (8.5-10.1) mg/dL Total Bilirubin (0.2-1.0) mg/dL AST (15-37) IU/L ALT (14-63) IU/L Alkaline Phosphatase (46-116) U/L Total Protein (6.4-8.2) g/dL Albumin (3.4-5.0) g/dL Globulin (2.6-4.0) g/dL Albumin/Globulin Ratio (0.9-1.6) Lipase (73-393) U/L Urine Color Urine Appearance Urine pH (5.0-8.0) Ur Specific [place] (1.001-1.035) Urine Protein (NEGATIVE) mg/dL Urine Glucose (UA) (NEGATIVE) mg/dL Urine Ketones (NEGATIVE) mg/dL Urine Occult Blood (NEGATIVE) Urine Nitrite (NEGATIVE) Urine Bilirubin (NEGATIVE) Urine Urobilinogen (<2.0) EU/dL Ur Leukocyte Esterase (NEGATIVE) Urine RBC (0-2/HPF) Urine WBC (0-5/HPF) Ur Epithelial Cells (NONE-FEW) Urine Bacteria (NEGATIVE) SARS-CoV-2 RNA (RICHARD) NEGATIVE (NEGATIVE) Result Diagrams: 01/03/21 11:04 01/03/21 11:04 Sepsis Event Note - Evaluation Sepsis Screening Result: No Definite Risk - Focused Exam Vital Signs: Vital Signs Temp Pulse Resp BP Pulse Ox 01/03/21 12:31 73 16 106/64 98 01/03/21 11:17 35.8 C L 80 16 135/91 H 96 - Problem List (1) Appendicitis SNOMED Code(s): 89632134 ICD Code: K37 - UNSPECIFIED APPENDICITIS Status: Acute Current Visit: Yes Problem List Initiated/Reviewed/Updated: Yes Orders Last 24hrs: Active Orders 24 hr Category Date Time Status Patient Status [ADT] Routine ADT 01/03/21 13:25 Ordered Blood Glucose Check, Bedside [RC] PRN Care 01/03/21 12:31 Active Intake and Output [RC] QSHIFT Care 01/03/21 13:26 Ordered Notify Provider Vital Signs [RC] ASDIRECTED Care 01/03/21 12:31 Active Overnight Pulse Oximetry [RC] Click to Edit Care 01/03/21 12:31 Active Oxygen Therapy [RC] PRN Care 01/03/21 12:31 Active Oxygen Therapy [RC] PRN Care 01/03/21 13:25 Ordered RT Aerosol Therapy [RC] ASDIRECTED Care 01/03/21 12:31 Active RT Aerosol Therapy [RC] ASDIRECTED Care 01/03/21 12:31 Active RT BiPAP/CPAP [RC] ASDIRECTED Care 01/03/21 12:31 Active RT Incentive Spirometry [RC] Q1HWA Care 01/03/21 13:25 Ordered Up ad Shireen [RC] ASDIRECTED Care 01/03/21 13:25 Ordered Verify Patient Consent Obtain [RC] ASDIRECTED Care 01/03/21 12:31 Active Vital Signs [RC] PER UNIT ROUTINE Care 01/03/21 13:25 Ordered Vital Signs [RC] Q5M Care 01/03/21 12:31 Active Nothing Per Oral Diet [DIET] Diet 01/03/21 Lunch Ordered Albuterol [Proventil Neb Soln] Med 01/03/21 12:31 Active 2.5 mg NEB ONETIME PRN HYDROmorphone [Dilaudid] Med 01/03/21 12:31 Active 0.5 mg IVPUSH Q10M PRN HYDROmorphone [Dilaudid] Med 01/03/21 13:25 Ordered 0.5 mg IVPUSH Q1H PRN Lactated Ringers @ 125 MLS/HR(1000ml) Med 01/03/21 13:30 Ordered Lactated Ringers [Ringers, Lactated] 1,000 ml IV ASDIRECTED Metoclopramide [Reglan] Med 01/03/21 12:31 Active 10 mg IVPUSH ONETIME PRN Metoclopramide [Reglan] Med 01/03/21 13:25 Ordered 10 mg IVPUSH Q6H PRN Morphine Med 01/03/21 12:31 Active 2 mg IVPUSH Q10M PRN Naloxone [Narcan] Med 01/03/21 12:31 Active 0.1 mg IVPUSH ASDIRECTED PRN Ondansetron [Zofran] Med 01/03/21 12:31 Active 4 mg IVPUSH ONETIME PRN Ondansetron [Zofran] Med 01/03/21 13:25 Ordered 4 mg IVPUSH Q6H PRN Piperacillin/Tazobactam [Piperacil-Tazobact] 3.375 gm Med 01/03/21 13:01 Active Sodium Chloride 0.9% [Normal Saline] 50 ml IV ONETIME Piperacillin/Tazobactam [Piperacil-Tazobact] 3.375 gm Med 01/03/21 20:30 Ordered Sodium Chloride 0.9% [Normal Saline] 50 ml IV Q6H Promethazine [Phenergan] Med 01/03/21 13:25 Ordered 25 mg IM Q6H PRN Sodium Chloride 0.9% [Normal Saline] Med 01/03/21 13:25 Ordered 10 ml IV ASDIRECTED PRN Sodium Chloride 0.9% [Saline Flush] Med 01/03/21 13:25 Ordered 10 ml FLUSH ASDIRECTED PRN Sodium Chloride 0.9% [Saline Flush] Med 01/03/21 13:25 Ordered 2.5 ml FLUSH ASDIRECTED PRN diphenhydrAMINE [Benadryl] Med 01/03/21 13:25 Ordered 50 mg IVPUSH Q4H PRN droperidoL [Inapsine] Med 01/03/21 12:31 Active 0.625 mg IVPUSH ONETIME PRN fentaNYL [Sublimaze] Med 01/03/21 12:31 Active 50 mcg IVPUSH Q5M PRN Medication Administration Instruction [OM.PC] Routine Oth 01/03/21 12:31 Ordered Peripheral IV Insertion Adult [OM.PC] Urgent Oth 01/03/21 13:25 Ordered Pulse Oximetry Continuous Monitoring [OM.PC] Routine Oth 01/03/21 12:31 Ordered Resuscitation Status Routine Resus Stat 01/03/21 13:25 Ordered Medication Orders Albuterol (Albuterol 0.083% 2.5 Mg/3 Ml Neb Soln) 2.5 mg NEB ONETIME PRN PRN Reason: Wheezing Droperidol (Droperidol 5 Mg/2 Ml Sdv) 0.625 mg IVPUSH ONETIME PRN PRN Reason: Nausea/Vomiting Fentanyl (Fentanyl 100 Mcg/2 Ml Sdv) 50 mcg IVPUSH Q5M PRN PRN Reason: Pain (mild 1-3) Hydromorphone HCl (Hydromorphone 2 Mg/Ml Syringe) 0.5 mg IVPUSH Q10M PRN PRN Reason: Pain (moderate 4-6) Piperacillin Sod/Tazobactam (Sod 3.375 gm/ Sodium Chloride) 50 mls @ 100 mls/hr IV ONETIME ONE Stop: 01/03/21 13:30 Metoclopramide HCl (Metoclopramide 10 Mg/2 Ml Sdv) 10 mg IVPUSH ONETIME PRN PRN Reason: Nausea/Vomiting Morphine Sulfate (Morphine 2 Mg/Ml Syringe) 2 mg IVPUSH Q10M PRN PRN Reason: Pain (severe 7-10) Naloxone HCl (Naloxone 0.4 Mg/Ml Syringe) 0.1 mg IVPUSH ASDIRECTED PRN PRN Reason: Respiratory Depression Ondansetron HCl (Ondansetron 4 Mg/2 Ml Sdv) 4 mg IVPUSH ONETIME PRN PRN Reason: Nausea/Vomiting Assessment/Plan Comment:: The patient and I discussed the pathophysiology of acute appendicitis. The treatment for this is an appendectomy. I will attempt it laparoscopically but convert to open should I be unable to perform it safely. We discussed the procedure, expected perioperative course, and the risks including bleeding infection or damage to surrounding structures. He verbalized understanding and wishes to proceed.
[2021-01-03] MEDS: Lactated Ringers 1,000 ML IV SCH (14:48)
[2021-01-03] MEDS: HYDROmorphone 1 MG/ML Syringe IVPUSH PRN ×2 (14:50→16:16)
[2021-01-03] MEDS ORDERED: Bupivacaine 0.5% 30 ML SDV ONE (15:33)
[2021-01-03] MEDS ORDERED: Octyl 2-Cyanoacrylate 1 Tube ONE (15:33)
[2021-01-03] MEDS ORDERED: fentaNYL 250 MCG/5 ML SDV ONE (16:11)
[2021-01-03] MEDS ORDERED: Propofol 200 MG/20 ML SDV ONE ×2 (16:11→17:34)
[2021-01-03] MEDS ORDERED: Midazolam 1 MG/ML 2 ML SDV ONE (16:11)
[2021-01-03] MEDS ORDERED: Ondansetron 4 MG/2 ML SDV ONE (16:12)
[2021-01-03] MEDS ORDERED: Ketorolac 30 MG/ML SDV ONE (16:12)
[2021-01-03] MEDS ORDERED: Glycopyrrolate 0.2 MG/ML SDV ONE (16:12)
[2021-01-03] MEDS ORDERED: Lidocaine 2% 5 ML SDV ONE (16:12)
[2021-01-03] MEDS ORDERED: Rocuronium Bromide 50 MG/5 ML Syringe ONE ×2 (16:12→17:34)
[2021-01-03] MEDS ORDERED: Sugammadex Sodium 200 MG/2 ML VIAL ONE (16:12)
[2021-01-03] MEDS ORDERED: HYDROmorphone 2 MG/ML Syringe ONE ×2 (17:17→17:41)
[2021-01-03] MEDS ORDERED: Acetaminophen 1,000 MG in Premix Bag 1 BAG IV PRN (17:28)
[2021-01-03] MEDS ORDERED: ceFAZolin 1 GM Vial ONE ×2 (17:57→18:41)
--- NOTE | 2021-01-03 19:28 | PCM.OPNOTE ---
- General Post-Op/Procedure Note Date of Surgery/Procedure: 01/03/21 Operative Procedure(s): Laparoscopic appendectomy Findings: Enlarged inflamed and partially necrotic appendix that was located retrocecally. The appendix ruptured with manipulation. Pre Op Diagnosis: Appendicitis Post-Op Diagnosis: Appendicitis with localized peritonitis and intra-operative rupture Anesthesia Technique: General ET Tube Primary Surgeon: Iram Villatoro Pathology: appendix Fluid Replacement, Intraop: 2,500 Output, Urine Amount: 150 EBL in mLs: 10 Condition: Stable Free Text/Narrative:: Intake & Output 01/03/21 01/03/21 01/03/21 06:59 14:59 22:59 Intake Total 0 Output Total 300 Balance -300
--- NOTE | 2021-01-03 19:40 | PCM.POSTAN ---
POST ANESTHESIA ASSESSMENT - MENTAL STATUS Mental Status: Alert - VITAL SIGNS Vital Signs: Last Vital Signs Temp 36.8 C 01/03/21 19:26 Pulse 97 01/03/21 19:37 Resp 9 L 01/03/21 19:37 BP 115/80 01/03/21 19:37 Pulse Ox 99 01/03/21 19:37 - RESPIRATORY Respiratory Status: Respiratory Rate WNL - CARDIOVASCULAR CV Status: Pulse Rate WNL - GASTROINTESTINAL GI Status: No Symptoms - POST OP HYDRATION Hydration Status: Adequate & Stable
--- NOTE | 2021-01-03 19:42 | PCM48HPAN ---
Post Anesthesia Note - EVALUATION WITHIN 48HRS OF ANESTHETIC Vital Signs in Normal Range: Yes Patient Participated in Evaluation: Yes Respiratory Function Stable: Yes Airway Patent: Yes Cardiovascular Function Stable: Yes Hydration Status Stable: Yes Pain Control Satisfactory: Yes Nausea and Vomiting Control Satisfactory: Yes Mental Status Recovered: Yes Vital Signs: Last Vital Signs Temp 36.8 C 01/03/21 19:26 Pulse 97 01/03/21 19:37 Resp 9 L 01/03/21 19:37 BP 115/80 01/03/21 19:37 Pulse Ox 99 01/03/21 19:37
[2021-01-03] MEDS: Ketorolac 30 MG/ML SDV IVPUSH SCH (20:39)
[2021-01-03] MEDS: Piperacillin/Tazobactam 3.375 GM in Sodium Chloride 0.9% 50 ML IV SCH (20:39)
--- NOTE | 2021-01-04 01:00 | OR ---
SURGEON: IRAM VILLATORO MD DATE OF PROCEDURE: 01/03/2021 PREOPERATIVE DIAGNOSIS: Acute appendicitis. POSTOPERATIVE DIAGNOSIS: Acute appendicitis with localized peritonitis and rupture. Umbilical hernia PROCEDURE PERFORMED: Laparoscopic appendectomy. PRIMARY SURGEON: Iram Villatoro MD. ANESTHESIA: General endotracheal anesthesia, local. FLUIDS: 2500 mL crystalloid. ESTIMATED BLOOD LOSS: 10 mL. URINE OUTPUT: 150 mL FINDINGS: Grossly enlarged, inflamed, and partially necrotic appendix. The appendix ruptured with manipulation in the operating room. Appendix was located retrocecally. Small umbilical hernia. Reducible. COMPLICATIONS: None. INDICATIONS: The patient is a 50-year-old male who presented to the ER with one day of acute right lower quadrant abdominal pain. This was associated with nausea and vomiting. His vital signs were stable on arrival. His white count was elevated with a left shift. A CT scan of the abdomen and pelvis showed a grossly inflamed and a large retrocecal appendix, consistent with acute appendicitis. I explained to the patient the pathophysiology of acute appendicitis. I explained the need for an appendectomy. I explained that I would attempt this laparoscopically, but convert to open should I be unable to perform it safely. I explained the expected perioperative course for ruptured versus nonruptured appendicitis. I explained the risks of the procedure including bleeding, infection, or damage to surrounding structures. He verbalized understanding and wishes to proceed. PROCEDURE IN DETAIL: The patient was brought to the OR and placed on the OR table in supine position. A time-out was completed verifying the patient's name, age, date of , allergies, and procedure to be performed. General endotracheal anesthesia was induced. The left arm was tucked to the patient's side and a Kinsey catheter placed. The abdomen was prepped and draped in usual standard fashion. I anesthetized an area 2 fingerbreadths below the left subcostal margin in the midclavicular line with 0.5% Marcaine plain. An 11 blade was used to make an incision in this area. A 5 mm optical trocar was used to gain entry into the left upper quadrant under direct visualization. The abdomen was insufflated and I inspected the area underneath my initial trocar placement. No damage to surrounding structures was noted. A 5 mm trocar was placed just left and lateral to the umbilicus. A 12 mm trocar was placed in the left lower quadrant under direct visualization. The patient was placed into Trendelenburg position and airplaned slightly to the left. There was a small umbilical hernia noted and a photograph was taken. I turned my attention to the right lower quadrant. I identified the cecum and followed the tenia down to the base of the cecum. I could see the terminal ileum coming in medially. I then rotated the cecum medially and noted a grossly enlarged and inflamed appendix. I was able to grasp some of the fat of the appendix and work my way along the right paracolic gutter up to the tip of the appendix. This was encased in an inflammatory rind. Using gentle blunt dissection, I freed away the attachments of the tip of the appendix to the underside of the colon. I was then able to grasp the fat of the appendix and deliver the appendix more anteriorly. The appendix was grossly inflamed and dilated. I grasped the tip of the appendix and began my dissection along the appendiceal mesentery. The appendiceal mesentery was thickened and inflamed, so I started my dissection distally. With manipulation, the appendix ruptured and purulent material containing bits of stool poured into the abdomen. I suctioned this out and attempted to control it throughout the case. I then continued my dissection along the appendiceal mesentery from distal to proximal. The more proximal I was, the more careful I was with my dissection. Using a [place] dissector, I would create windows between the appendix and the appendiceal mesentery. Once I created a window, I would take down the tissue in between using the Harmonic scalpel device. Great care was taken to avoid damage to surrounding structures given that the appendix was retrocecal. Close to the base of the appendix, I noticed that the appendix appeared slightly necrotic. There were some ulcers along the proximal half of the body of the appendix. To ensure good vascular control, any tissue that appeared to be vasculature, I doubly clipped and then ligated with the Harmonic scalpel device to avoid any hemorrhage. Eventually, I was able to free up enough of my lateral edge of the appendix to clearly see the base of the appendix where it inserted on the cecum. A photograph of this was taken. An endoscopic stapling device was then brought through the left lower quadrant port site and I stapled and transected across the base of the appendix. The appendix was then placed in an Endo Catch bag and removed through the left lower quadrant port site. The 12 mm trocar was reinserted. I copiously irrigated the abdomen with 2 L of normal saline with Ancef in it given the contamination from the perforation. I suctioned as much of this out as I possibly could. Given the amount of spillage, I decided to place a drain. I placed a 5 mm trocar under direct visualization in the lower midline of the abdomen. I then brought a 19-Polish Jan drain through this opening. The tip of the drain was placed along the edge of the liver and brought down through the right paracolic gutter and out through the midline. The drain was secured to the skin using a 2-0 silk suture. The 12 mm trocar was then removed and the fascia at this site closed with interrupted 0 Vicryl suture using a Johnnie-Geraldine device. The 5 mm trocars were then removed as well allowing the abdomen to desufflate. The drain was then hooked to the bulb suction device. Given the gross contamination of the abdomen, I closed the incision sites with shanta. Sterile dressings were then applied. The patient tolerated the procedure well and was taken to the PACU in stable condition. SHIRA SMILEY /[id number] [place]
[2021-01-04] MEDS: Piperacillin/Tazobactam 3.375 GM in Sodium Chloride 0.9% 50 ML IV SCH ×4 (02:18→19:36)
[2021-01-04] MEDS: Ketorolac 30 MG/ML SDV IVPUSH SCH ×4 (02:18→19:37)
[2021-01-04] MEDS: HYDROmorphone 1 MG/ML Syringe IVPUSH PRN ×2 (04:23→06:41)
[2021-01-04] MEDS: Lactated Ringers 1,000 ML IV SCH ×2 (04:24→12:37)
[2021-01-04 05:57] LABS: BLOOD UREA NITROGEN,BUN 13 mg/dL (7.0-18.0); CARBON DIOXIDE,CO2 27.5 mmol/L (21.0-32.0); CHLORIDE,CL 100 mmol/L (98-107); GLUCOSE RANDOM 108 mg/dL (74-106); POTASSIUM,K 3.9 mmol/L (3.5-5.1); SODIUM,NA 137 mmol/L (136-148)
[2021-01-04] MEDS: Acetaminophen/oxyCODONE 325-5 MG Tab PO PRN ×3 (08:16→20:47)
--- NOTE | 2021-01-04 14:36 | PCM.SURGPN ---
- General Info Date of Service: 01/04/21 Date of Surgery/Procedure: 01/03/21 POD#: 1 Functional Status: Reports: Other (Pain along right side of abdomen. Pain better controlled this am with po pain medications and scheduled medication. Tolerating a regular diet. Not passing flatus yet. No nausea or vomiting. Drain with >100cc of cloudy yellow material. ) - Review of Systems General: Denies: Fever, Weakness, Fatigue, Chills, Night Sweats HEENT: Reports: No Symptoms Pulmonary: Reports: Other (right shoulder and chest pain with deep breathes ) Cardiovascular: Reports: No Symptoms Gastrointestinal: Reports: Abdominal Pain (right side of abdomen ). Denies: Flatus, Nausea, Vomiting Genitourinary: Reports: Other (Initally had some hesitancy now resolved. ) - Patient Data Vitals - Most Recent: Last Vital Signs Temp 36.4 C 01/04/21 12:00 Pulse 97 01/04/21 12:00 Resp 18 01/04/21 12:00 BP 104/63 01/04/21 12:00 Pulse Ox 93 L 01/04/21 12:00 Weight - Most Recent: 84.051 kg I&O - Last 24 Hours: Intake & Output 01/03/21 01/04/21 01/04/21 22:59 06:59 14:59 Intake Total 5100 390 50 Output Total 600 385 Balance 4500 5 50 Lab Results Last 24 Hrs: Laboratory Results - last 24 hr 01/04/21 01/04/21 Range/Units 04:57 04:57 WBC 15.63 H (4.0-11.0) K/uL RBC 4.08 L (4.50-5.90) M/uL Hgb 13.3 (13.0-17.0) g/dL Hct 39.0 (38.0-50.0) % MCV 95.6 (80.0-98.0) fL MCH 32.6 H (27.0-32.0) pg MCHC 34.1 (31.0-37.0) g/dL RDW Std Deviation 45.7 (28.0-62.0) fl RDW Coeff of Ben 13 (11.0-15.0) % Plt Count 283 (150-400) K/uL MPV 9.70 (7.40-12.00) fL Neut % (Auto) 85.1 H (48.0-80.0) % Lymph % (Auto) 8.1 L (16.0-40.0) % [place] % (Auto) 6.7 (0.0-15.0) % Eos % (Auto) 0.0 (0.0-7.0) % Baso % (Auto) 0.1 (0.0-1.5) % Neut # (Auto) 13.3 H (1.4-5.7) K/uL Lymph # (Auto) 1.3 (0.6-2.4) K/uL [place] # (Auto) 1.0 H (0.0-0.8) K/uL Eos # (Auto) 0.0 (0.0-0.7) K/uL Baso # (Auto) 0.0 (0.0-0.1) K/uL Nucleated RBC % 0.0 /100WBC Nucleated RBCs # 0 K/uL Sodium 137 (136-148) mmol/L Potassium 3.9 (3.5-5.1) mmol/L Chloride 100 (98-107) mmol/L Carbon Dioxide 27.5 (21.0-32.0) mmol/L BUN 13 (7.0-18.0) mg/dL Creatinine 1.1 (0.8-1.3) mg/dL Est Cr Clr Drug Dosing 82.13 mL/min Estimated GFR (MDRD) > 60.0 ml/min Glucose 108 H (74-106) mg/dL Calcium 8.2 L (8.5-10.1) mg/dL Med Orders - Current: Current Medications Diphenhydramine HCl (Diphenhydramine 50 Mg/Ml Sdv) 50 mg IVPUSH Q4H PRN PRN Reason: Itching Hydromorphone HCl (Hydromorphone 1 Mg/Ml Syringe) 0.5 mg IVPUSH Q1H PRN PRN Reason: Pain (severe 7-10) Last Admin: 01/04/21 06:41 Dose: 0.5 mg Documented by: Lactated Ringer's (Ringers, Lactated) 1,000 mls @ 125 mls/hr IV ASDIRECTED [facility] Last Admin: 01/04/21 12:37 Dose: 125 mls/hr Documented by: Piperacillin Sod/Tazobactam (Sod 3.375 gm/ Sodium Chloride) 50 mls @ 100 mls/hr IV Q6H [facility] Last Admin: 01/04/21 07:57 Dose: 100 mls/hr Documented by: Acetaminophen 1,000 mg/ Premix 100 mls @ 400 mls/hr IV Q6H PRN PRN Reason: Pain Ketorolac Tromethamine (Ketorolac 30 Mg/Ml Sdv) 30 mg IVPUSH Q6H [facility] Stop: 01/08/21 19:29 Last Admin: 01/04/21 12:34 Dose: 30 mg Documented by: Metoclopramide HCl (Metoclopramide 10 Mg/2 Ml Sdv) 10 mg IVPUSH Q6H PRN PRN Reason: Nausea Ondansetron HCl (Ondansetron 4 Mg/2 Ml Sdv) 4 mg IVPUSH Q6H PRN PRN Reason: Nausea/Vomiting Oxycodone/Acetaminophen (Acetaminophen/Oxycodone 325-5 Mg Tab) 2 tab PO Q4H PRN PRN Reason: Pain (severe 7-10) Last Admin: 01/04/21 12:34 Dose: 2 tab Documented by: Polyethylene Glycol (Polyethylene Glycol 3350 Powder 17 Gm Packet) 17 gm PO DAILY [facility] Promethazine HCl (Promethazine 25 Mg/Ml Sdv) 25 mg IM Q6H PRN PRN Reason: Nausea Sodium Chloride (Sodium Chloride 0.9% 10 Ml Syringe) 10 ml FLUSH ASDIRECTED PRN PRN Reason: Keep Vein Open Sodium Chloride (Sodium Chloride 0.9% 2.5 Ml Syringe) 2.5 ml FLUSH ASDIRECTED PRN PRN Reason: Keep Vein Open Sodium Chloride (Sodium Chloride 0.9% 10 Ml Sdv) 10 ml IV ASDIRECTED PRN PRN Reason: IV Use Discontinued Medications Albuterol (Albuterol 0.083% 2.5 Mg/3 Ml Neb Soln) 2.5 mg NEB ONETIME PRN PRN Reason: Wheezing Bupivacaine HCl (Bupivacaine 0.5% 30 Ml Sdv) Confirm Administered Dose 30 ml .ROUTE .STK-MED ONE Stop: 01/03/21 15:34 Cefazolin Sodium (Cefazolin 1 Gm Vial) Confirm Administered Dose 1 gm .ROUTE .STK-MED ONE Stop: 01/03/21 17:58 Cefazolin Sodium (Cefazolin 1 Gm Vial) Confirm Administered Dose 1 gm .ROUTE .STK-MED ONE Stop: 01/03/21 18:42 Droperidol (Droperidol 5 Mg/2 Ml Sdv) 0.625 mg IVPUSH ONETIME PRN PRN Reason: Nausea/Vomiting Fentanyl (Fentanyl 250 Mcg/5 Ml Sdv) Confirm Administered Dose 250 mcg .ROUTE .STK-MED ONE Stop: 01/03/21 16:12 Fentanyl (Fentanyl 100 Mcg/2 Ml Sdv) 50 mcg IVPUSH Q5M PRN PRN Reason: Pain Glycopyrrolate (Glycopyrrolate 0.2 Mg/Ml Sdv) Confirm Administered Dose 0.2 mg .ROUTE .STK-MED ONE Stop: 01/03/21 16:13 Hydromorphone HCl (Hydromorphone 1 Mg/Ml Syringe) 1 mg IVPUSH ONETIME ONE Stop: 01/03/21 10:52 Last Admin: 01/03/21 11:08 Dose: 1 mg Documented by: Hydromorphone HCl (Hydromorphone 2 Mg/Ml Syringe) 0.5 mg IVPUSH Q10M PRN PRN Reason: Pain (moderate 4-6) Hydromorphone HCl (Hydromorphone 2 Mg/Ml Syringe) Confirm Administered Dose 2 mg .ROUTE .STK-MED ONE Stop: 01/03/21 17:18 Hydromorphone HCl (Hydromorphone 2 Mg/Ml Syringe) Confirm Administered Dose 2 mg .ROUTE .STK-MED ONE Stop: 01/03/21 17:42 Sodium Chloride (Normal Saline) 1,000 mls @ 999 mls/hr IV STAT ONE Stop: 01/03/21 11:51 Last Admin: 01/03/21 11:08 Dose: 999 mls/hr Documented by: Piperacillin Sod/Tazobactam (Sod 3.375 gm/ Sodium Chloride) 50 mls @ 100 mls/hr IV ONETIME ONE Stop: 01/03/21 13:30 Last Admin: 01/03/21 14:10 Dose: 100 mls/hr Documented by: Lactated Ringer's (Ringers, Lactated) 1,000 mls @ 125 mls/hr IV ASDIRECTED [facility] Last Admin: 01/04/21 04:24 Dose: 125 mls/hr Documented by: Ketorolac Tromethamine (Ketorolac 30 Mg/Ml Sdv) Confirm Administered Dose 30 mg .ROUTE .STK-MED ONE Stop: 01/03/21 16:13 Lidocaine (Lidocaine 2% 5 Ml Sdv) Confirm Administered Dose 5 ml .ROUTE .STK-MED ONE Stop: 01/03/21 16:13 Metoclopramide HCl (Metoclopramide 10 Mg/2 Ml Sdv) 10 mg IVPUSH ONETIME PRN PRN Reason: Nausea/Vomiting Midazolam HCl (Midazolam 1 Mg/Ml 2 Ml Sdv) Confirm Administered Dose 2 mg .ROUTE .STK-MED ONE Stop: 01/03/21 16:12 Morphine Sulfate (Morphine 2 Mg/Ml Syringe) 2 mg IVPUSH Q10M PRN PRN Reason: Pain (severe 7-10) Morphine Sulfate (Morphine 4 Mg/Ml Syringe) 4 mg IVPUSH ONETIME ONE Stop: 01/03/21 12:50 Last Admin: 01/03/21 13:07 Dose: 4 mg Documented by: Naloxone HCl (Naloxone 0.4 Mg/Ml Syringe) 0.1 mg IVPUSH ASDIRECTED PRN PRN Reason: Respiratory Depression Octyl Cyanoacrylate (Octyl 2-Cyanoacrylate 1 Tube) Confirm Administered Dose 1 applic .ROUTE .STK-MED ONE Stop: 01/03/21 15:34 Ondansetron HCl (Ondansetron 4 Mg/2 Ml Sdv) 4 mg IVPUSH ONETIME ONE Stop: 01/03/21 10:52 Last Admin: 01/03/21 11:08 Dose: 4 mg Documented by: Ondansetron HCl (Ondansetron 4 Mg/2 Ml Sdv) 4 mg IVPUSH ONETIME PRN PRN Reason: Nausea/Vomiting Ondansetron HCl (Ondansetron 4 Mg/2 Ml Sdv) 4 mg IVPUSH ONETIME ONE Stop: 01/03/21 12:50 Last Admin: 01/03/21 13:12 Dose: 4 mg Documented by: Ondansetron HCl (Ondansetron 4 Mg/2 Ml Sdv) Confirm Administered Dose 4 mg .ROUTE .STK-MED ONE Stop: 01/03/21 16:13 Propofol (Propofol 200 Mg/20 Ml Sdv) Confirm Administered Dose 200 mg .ROUTE .STK-MED ONE Stop: 01/03/21 16:12 Propofol (Propofol 200 Mg/20 Ml Sdv) Confirm Administered Dose 200 mg .ROUTE .STK-MED ONE Stop: 01/03/21 17:35 Rocuronium [place] (Rocuronium [place] 50 Mg/5 Ml Syringe) Confirm Administered Dose 50 mg .ROUTE .STK-MED ONE Stop: 01/03/21 16:13 Rocuronium [place] (Rocuronium [place] 50 Mg/5 Ml Syringe) Confirm Administered Dose 50 mg .ROUTE .STK-MED ONE Stop: 01/03/21 17:35 Scopolamine (Scopolamine 1.5 Mg Transdermal Patch) 1.5 mg TRDERM ONETIME ONE Stop: 01/03/21 15:46 Last Admin: 01/03/21 16:08 Dose: 1.5 mg Documented by: Sugammadex Sodium (Sugammadex Sodium 200 Mg/2 Ml Vial) Confirm Administered Dose 200 mg .ROUTE .STK-MED ONE Stop: 01/03/21 16:13 - Exam Wound/Incisions: Dressing Dry and Intact, Other (Drain with cloudy yellow fluid ) General: Alert, Oriented, Cooperative HEENT: Pupils Equal, Pupils Reactive Lungs: Normal Respiratory Effort Cardiovascular: Regular Rate GI/Abdominal Exam: Non-Tender, Distended. No: Guarding, Rigid, Rebound Extremities: Normal Inspection Skin: Warm, Dry, Intact Sepsis Event Note - Evaluation Sepsis Screening Result: No Definite Risk - Focused Exam Vital Signs: Vital Signs Temp Pulse Resp BP Pulse Ox 01/04/21 12:00 36.4 C 97 18 104/63 93 L 01/04/21 08:18 36.6 C 54 L 18 109/59 L 94 L 01/04/21 04:24 37.5 C 97 18 133/73 92 L - Problem List & Annotations (1) Appendicitis SNOMED Code(s): 35388026 Code(s): K37 - UNSPECIFIED APPENDICITIS Status: Acute Current Visit: Yes - Problem List Review Problem List Initiated/Reviewed/Updated: Yes - My Orders Last 24 Hours: Active Orders 24 hr Category Date Time Status Overnight Pulse Oximetry [RC] Click to Edit Care 01/03/21 17:28 Active Regular Diet [DIET] Diet 01/03/21 Dinner Active BASIC METABOLIC PANEL,BMP [CHEM] AM Lab 01/05/21 05:11 Ordered CBC WITH AUTO DIFF [HEME] AM Lab 01/05/21 05:11 Ordered Acetaminophen [Ofirmev 1000 mg/100 ml] 1,000 mg Med 01/03/21 17:28 Active Premix Bag 1 bag IV Q6H Acetaminophen/oxyCODONE [Percocet 325-5 MG] Med 01/03/21 19:29 Active 2 tab PO Q4H PRN HYDROmorphone [Dilaudid] Med 01/03/21 13:32 Active 0.5 mg IVPUSH Q1H PRN Ketorolac [Toradol] Med 01/03/21 19:30 Active 30 mg IVPUSH Q6H Lactated Ringers [Ringers, Lactated] 1,000 ml Med 01/03/21 13:30 Active IV ASDIRECTED Piperacillin/Tazobactam [Piperacil-Tazobact] 3.375 gm Med 01/03/21 20:30 Active Sodium Chloride 0.9% [Normal Saline] 50 ml IV Q6H polyethylene glycoL 3350 [MiraLAX] Med 01/04/21 20:00 Active 17 gm PO DAILY Medication Orders Diphenhydramine HCl (Diphenhydramine 50 Mg/Ml Sdv) 50 mg IVPUSH Q4H PRN PRN Reason: Itching Hydromorphone HCl (Hydromorphone 1 Mg/Ml Syringe) 0.5 mg IVPUSH Q1H PRN PRN Reason: Pain (severe 7-10) Last Admin: 01/04/21 06:41 Dose: 0.5 mg Documented by: Admin: 01/04/21 04:23 Dose: 0.5 mg Documented by: Admin: 01/03/21 16:16 Dose: 0.5 mg Documented by: Admin: 01/03/21 14:50 Dose: 0.5 mg Documented by: JOE Lactated Ringer's (Ringers, Lactated) 1,000 mls @ 125 mls/hr IV ASDIRECTED [facility] Last Admin: 01/04/21 12:37 Dose: 125 mls/hr Documented by: EVERARDO Piperacillin Sod/Tazobactam (Sod 3.375 gm/ Sodium Chloride) 50 mls @ 100 mls/hr IV Q6H [facility] Last Admin: 01/04/21 07:57 Dose: 100 mls/hr Documented by: Infusion: 01/04/21 02:48 Dose: 100 mls/hr Documented by: Admin: 01/04/21 02:18 Dose: 100 mls/hr Documented by: Infusion: 01/03/21 21:09 Dose: 100 mls/hr Documented by: Admin: 01/03/21 20:39 Dose: 100 mls/hr Documented by: CLARA Acetaminophen 1,000 mg/ Premix 100 mls @ 400 mls/hr IV Q6H PRN PRN Reason: Pain Ketorolac Tromethamine (Ketorolac 30 Mg/Ml Sdv) 30 mg IVPUSH Q6H [facility] Stop: 01/08/21 19:29 Last Admin: 01/04/21 12:34 Dose: 30 mg Documented by: Admin: 01/04/21 07:59 Dose: 30 mg Documented by: Admin: 01/04/21 02:18 Dose: 30 mg Documented by: Admin: 01/03/21 20:39 Dose: Not Given Documented by: CLARA Metoclopramide HCl (Metoclopramide 10 Mg/2 Ml Sdv) 10 mg IVPUSH Q6H PRN PRN Reason: Nausea Ondansetron HCl (Ondansetron 4 Mg/2 Ml Sdv) 4 mg IVPUSH Q6H PRN PRN Reason: Nausea/Vomiting Oxycodone/Acetaminophen (Acetaminophen/Oxycodone 325-5 Mg Tab) 2 tab PO Q4H PRN PRN Reason: Pain (severe 7-10) Last Admin: 01/04/21 12:34 Dose: 2 tab Documented by: Admin: 01/04/21 08:16 Dose: 2 tab Documented by: EVERARDO Polyethylene Glycol (Polyethylene Glycol 3350 Powder 17 Gm Packet) 17 gm PO DAILY [facility] Promethazine HCl (Promethazine 25 Mg/Ml Sdv) 25 mg IM Q6H PRN PRN Reason: Nausea Sodium Chloride (Sodium Chloride 0.9% 10 Ml Syringe) 10 ml FLUSH ASDIRECTED PRN PRN Reason: Keep Vein Open Sodium Chloride (Sodium Chloride 0.9% 2.5 Ml Syringe) 2.5 ml FLUSH ASDIRECTED PRN PRN Reason: Keep Vein Open Sodium Chloride (Sodium Chloride 0.9% 10 Ml Sdv) 10 ml IV ASDIRECTED PRN PRN Reason: IV Use - Plan Plan (Free Text/Narrative):: Pain: Scheduled toradol. PRN percocet and IV dilaudid prn severe pain. CV: Tachycardia improved. BP stable. Pulm: Encourage out of bed activity and IS use. Weaned off oxygen this am. GI: Tolerating a regular diet. Taking adequate po. Can d/c IVF. Start miralax to promote regular BMs. Renal: BUN improved. Cr stable. Adequate UOP. ID: Drain with slightly purulent output. Continue drain for now. Continue IV antibiotics given perforation and elevated WBC. Heme: Stable. Px: No need for GI px. DVT px with scds and starting lovenox.
[2021-01-04] MEDS: Enoxaparin 40 MG/0.4 ML Syringe SUBCUT SCH (15:21)
[2021-01-04] MEDS: Polyethylene Glycol 3350 Powder 17 GM Packet PO SCH (19:36)
[2021-01-05] MEDS: Acetaminophen/oxyCODONE 325-5 MG Tab PO PRN ×4 (00:52→18:22)
[2021-01-05] MEDS: Ketorolac 30 MG/ML SDV IVPUSH SCH ×3 (00:53→14:04)
[2021-01-05] MEDS: Piperacillin/Tazobactam 3.375 GM in Sodium Chloride 0.9% 50 ML IV SCH ×3 (02:48→15:15)
[2021-01-05 06:48] LABS: BLOOD UREA NITROGEN,BUN 12 mg/dL (7.0-18.0); CARBON DIOXIDE,CO2 30.5 mmol/L (21.0-32.0); CHLORIDE,CL 100 mmol/L (98-107); GLUCOSE RANDOM 96 mg/dL (74-106); POTASSIUM,K 3.9 mmol/L (3.5-5.1); SODIUM,NA 137 mmol/L (136-148)
--- NOTE | 2021-01-05 07:58 | PCM.SURGPN ---
- General Info Date of Service: 01/05/21 Date of Surgery/Procedure: 01/03/21 POD#: 2 Functional Status: Reports: Pain Controlled, Tolerating Diet, Ambulating, Urinating. Denies: New Symptoms - Review of Systems General: Reports: No Symptoms HEENT: Reports: No Symptoms Pulmonary: Reports: No Symptoms Cardiovascular: Reports: No Symptoms Gastrointestinal: Reports: Abdominal Pain (Only with movement), Flatus Genitourinary: Reports: No Symptoms Musculoskeletal: Reports: No Symptoms - Patient Data Vitals - Most Recent: Last Vital Signs Temp 36.8 C 01/05/21 07:35 Pulse 91 01/05/21 07:35 Resp 16 01/05/21 07:35 BP 124/82 01/05/21 07:35 Pulse Ox 90 L 01/05/21 07:35 Weight - Most Recent: 84.051 kg I&O - Last 24 Hours: Intake & Output 01/04/21 01/05/21 01/05/21 22:59 06:59 14:59 Intake Total 850 Output Total 480 Balance 370 Lab Results Last 24 Hrs: Laboratory Results - last 24 hr 01/05/21 01/05/21 Range/Units 05:32 05:32 WBC 14.17 H (4.0-11.0) K/uL RBC 4.04 L (4.50-5.90) M/uL Hgb 13.2 (13.0-17.0) g/dL Hct 39.3 (38.0-50.0) % MCV 97.3 (80.0-98.0) fL MCH 32.7 H (27.0-32.0) pg MCHC 33.6 (31.0-37.0) g/dL RDW Std Deviation 47.0 (28.0-62.0) fl RDW Coeff of Ben 13 (11.0-15.0) % Plt Count 267 (150-400) K/uL MPV 9.20 (7.40-12.00) fL Neut % (Auto) 80.7 H (48.0-80.0) % Lymph % (Auto) 11.2 L (16.0-40.0) % [place] % (Auto) 7.3 (0.0-15.0) % Eos % (Auto) 0.6 (0.0-7.0) % Baso % (Auto) 0.2 (0.0-1.5) % Neut # (Auto) 11.4 H (1.4-5.7) K/uL Lymph # (Auto) 1.6 (0.6-2.4) K/uL [place] # (Auto) 1.0 H (0.0-0.8) K/uL Eos # (Auto) 0.1 (0.0-0.7) K/uL Baso # (Auto) 0.0 (0.0-0.1) K/uL Nucleated RBC % 0.0 /100WBC Nucleated RBCs # 0 K/uL Sodium 137 (136-148) mmol/L Potassium 3.9 (3.5-5.1) mmol/L Chloride 100 (98-107) mmol/L Carbon Dioxide 30.5 (21.0-32.0) mmol/L BUN 12 (7.0-18.0) mg/dL Creatinine 1.2 (0.8-1.3) mg/dL Est Cr Clr Drug Dosing 75.28 mL/min Estimated GFR (MDRD) > 60.0 ml/min Glucose 96 (74-106) mg/dL Calcium 8.6 (8.5-10.1) mg/dL Med Orders - Current: Current Medications Diphenhydramine HCl (Diphenhydramine 50 Mg/Ml Sdv) 50 mg IVPUSH Q4H PRN PRN Reason: Itching Enoxaparin Sodium (Enoxaparin 40 Mg/0.4 Ml Syringe) 40 mg SUBCUT Q24H [facility] Last Admin: 01/04/21 15:21 Dose: 40 mg Documented by: Hydromorphone HCl (Hydromorphone 1 Mg/Ml Syringe) 0.5 mg IVPUSH Q1H PRN PRN Reason: Pain (severe 7-10) Last Admin: 01/04/21 06:41 Dose: 0.5 mg Documented by: Lactated Ringer's (Ringers, Lactated) 1,000 mls @ 125 mls/hr IV ASDIRECTED [facility] Last Admin: 01/04/21 12:37 Dose: 125 mls/hr Documented by: Piperacillin Sod/Tazobactam (Sod 3.375 gm/ Sodium Chloride) 50 mls @ 100 mls/hr IV Q6H [facility] Last Admin: 01/05/21 02:48 Dose: 100 mls/hr Documented by: Acetaminophen 1,000 mg/ Premix 100 mls @ 400 mls/hr IV Q6H PRN PRN Reason: Pain Ketorolac Tromethamine (Ketorolac 30 Mg/Ml Sdv) 30 mg IVPUSH Q6H [facility] Stop: 01/08/21 19:29 Last Admin: 01/05/21 00:53 Dose: 30 mg Documented by: Metoclopramide HCl (Metoclopramide 10 Mg/2 Ml Sdv) 10 mg IVPUSH Q6H PRN PRN Reason: Nausea Ondansetron HCl (Ondansetron 4 Mg/2 Ml Sdv) 4 mg IVPUSH Q6H PRN PRN Reason: Nausea/Vomiting Oxycodone/Acetaminophen (Acetaminophen/Oxycodone 325-5 Mg Tab) 2 tab PO Q4H PRN PRN Reason: Pain (severe 7-10) Last Admin: 01/05/21 06:21 Dose: 2 tab Documented by: Polyethylene Glycol (Polyethylene Glycol 3350 Powder 17 Gm Packet) 17 gm PO DAILY [facility] Last Admin: 01/04/21 19:36 Dose: 17 gm Documented by: Promethazine HCl (Promethazine 25 Mg/Ml Sdv) 25 mg IM Q6H PRN PRN Reason: Nausea Sodium Chloride (Sodium Chloride 0.9% 10 Ml Syringe) 10 ml FLUSH ASDIRECTED PRN PRN Reason: Keep Vein Open Sodium Chloride (Sodium Chloride 0.9% 2.5 Ml Syringe) 2.5 ml FLUSH ASDIRECTED PRN PRN Reason: Keep Vein Open Sodium Chloride (Sodium Chloride 0.9% 10 Ml Sdv) 10 ml IV ASDIRECTED PRN PRN Reason: IV Use Discontinued Medications Albuterol (Albuterol 0.083% 2.5 Mg/3 Ml Neb Soln) 2.5 mg NEB ONETIME PRN PRN Reason: Wheezing Bupivacaine HCl (Bupivacaine 0.5% 30 Ml Sdv) Confirm Administered Dose 30 ml .ROUTE .STK-MED ONE Stop: 01/03/21 15:34 Cefazolin Sodium (Cefazolin 1 Gm Vial) Confirm Administered Dose 1 gm .ROUTE .STK-MED ONE Stop: 01/03/21 17:58 Cefazolin Sodium (Cefazolin 1 Gm Vial) Confirm Administered Dose 1 gm .ROUTE .STK-MED ONE Stop: 01/03/21 18:42 Droperidol (Droperidol 5 Mg/2 Ml Sdv) 0.625 mg IVPUSH ONETIME PRN PRN Reason: Nausea/Vomiting Fentanyl (Fentanyl 250 Mcg/5 Ml Sdv) Confirm Administered Dose 250 mcg .ROUTE .STK-MED ONE Stop: 01/03/21 16:12 Fentanyl (Fentanyl 100 Mcg/2 Ml Sdv) 50 mcg IVPUSH Q5M PRN PRN Reason: Pain Glycopyrrolate (Glycopyrrolate 0.2 Mg/Ml Sdv) Confirm Administered Dose 0.2 mg .ROUTE .STK-MED ONE Stop: 01/03/21 16:13 Hydromorphone HCl (Hydromorphone 1 Mg/Ml Syringe) 1 mg IVPUSH ONETIME ONE Stop: 01/03/21 10:52 Last Admin: 01/03/21 11:08 Dose: 1 mg Documented by: Hydromorphone HCl (Hydromorphone 2 Mg/Ml Syringe) 0.5 mg IVPUSH Q10M PRN PRN Reason: Pain (moderate 4-6) Hydromorphone HCl (Hydromorphone 2 Mg/Ml Syringe) Confirm Administered Dose 2 mg .ROUTE .STK-MED ONE Stop: 01/03/21 17:18 Hydromorphone HCl (Hydromorphone 2 Mg/Ml Syringe) Confirm Administered Dose 2 mg .ROUTE .STK-MED ONE Stop: 01/03/21 17:42 Sodium Chloride (Normal Saline) 1,000 mls @ 999 mls/hr IV STAT ONE Stop: 01/03/21 11:51 Last Admin: 01/03/21 11:08 Dose: 999 mls/hr Documented by: Piperacillin Sod/Tazobactam (Sod 3.375 gm/ Sodium Chloride) 50 mls @ 100 mls/hr IV ONETIME ONE Stop: 01/03/21 13:30 Last Admin: 01/03/21 14:10 Dose: 100 mls/hr Documented by: Lactated Ringer's (Ringers, Lactated) 1,000 mls @ 125 mls/hr IV ASDIRECTED [facility] Last Admin: 01/04/21 04:24 Dose: 125 mls/hr Documented by: Ketorolac Tromethamine (Ketorolac 30 Mg/Ml Sdv) Confirm Administered Dose 30 mg .ROUTE .STK-MED ONE Stop: 01/03/21 16:13 Lidocaine (Lidocaine 2% 5 Ml Sdv) Confirm Administered Dose 5 ml .ROUTE .STK-MED ONE Stop: 01/03/21 16:13 Metoclopramide HCl (Metoclopramide 10 Mg/2 Ml Sdv) 10 mg IVPUSH ONETIME PRN PRN Reason: Nausea/Vomiting Midazolam HCl (Midazolam 1 Mg/Ml 2 Ml Sdv) Confirm Administered Dose 2 mg .ROUTE .STK-MED ONE Stop: 01/03/21 16:12 Morphine Sulfate (Morphine 2 Mg/Ml Syringe) 2 mg IVPUSH Q10M PRN PRN Reason: Pain (severe 7-10) Morphine Sulfate (Morphine 4 Mg/Ml Syringe) 4 mg IVPUSH ONETIME ONE Stop: 01/03/21 12:50 Last Admin: 01/03/21 13:07 Dose: 4 mg Documented by: Naloxone HCl (Naloxone 0.4 Mg/Ml Syringe) 0.1 mg IVPUSH ASDIRECTED PRN PRN Reason: Respiratory Depression Octyl Cyanoacrylate (Octyl 2-Cyanoacrylate 1 Tube) Confirm Administered Dose 1 applic .ROUTE .STK-MED ONE Stop: 01/03/21 15:34 Ondansetron HCl (Ondansetron 4 Mg/2 Ml Sdv) 4 mg IVPUSH ONETIME ONE Stop: 01/03/21 10:52 Last Admin: 01/03/21 11:08 Dose: 4 mg Documented by: Ondansetron HCl (Ondansetron 4 Mg/2 Ml Sdv) 4 mg IVPUSH ONETIME PRN PRN Reason: Nausea/Vomiting Ondansetron HCl (Ondansetron 4 Mg/2 Ml Sdv) 4 mg IVPUSH ONETIME ONE Stop: 01/03/21 12:50 Last Admin: 01/03/21 13:12 Dose: 4 mg Documented by: Ondansetron HCl (Ondansetron 4 Mg/2 Ml Sdv) Confirm Administered Dose 4 mg .ROUTE .STK-MED ONE Stop: 01/03/21 16:13 Propofol (Propofol 200 Mg/20 Ml Sdv) Confirm Administered Dose 200 mg .ROUTE .STK-MED ONE Stop: 01/03/21 16:12 Propofol (Propofol 200 Mg/20 Ml Sdv) Confirm Administered Dose 200 mg .ROUTE .ST K-MED ONE Stop: 01/03/21 17:35 Rocuronium [place] (Rocuronium [place] 50 Mg/5 Ml Syringe) Confirm Administered Dose 50 mg .ROUTE .STK-MED ONE Stop: 01/03/21 16:13 Rocuronium [place] (Rocuronium [place] 50 Mg/5 Ml Syringe) Confirm Administered Dose 50 mg .ROUTE .STK-MED ONE Stop: 01/03/21 17:35 Scopolamine (Scopolamine 1.5 Mg Transdermal Patch) 1.5 mg TRDERM ONETIME ONE Stop: 01/03/21 15:46 Last Admin: 01/03/21 16:08 Dose: 1.5 mg Documented by: Sugammadex Sodium (Sugammadex Sodium 200 Mg/2 Ml Vial) Confirm Administered Dose 200 mg .ROUTE .STK-MED ONE Stop: 01/03/21 16:13 - Exam Wound/Incisions: Healing Well, Other (drain with yellow, more clear appearing drainage) General: Alert, Oriented HEENT: Pupils Equal, Pupils Reactive Lungs: Clear to Auscultation, Normal Respiratory Effort Cardiovascular: Regular Rate, Regular Rhythm GI/Abdominal Exam: Normal Bowel Sounds, Soft, Non-Tender, Distended Sepsis Event Note - Evaluation Sepsis Screening Result: Sepsis Risk - Focused Exam Vital Signs: Vital Signs Temp Pulse Resp BP Pulse Ox 01/05/21 07:35 36.8 C 91 16 124/82 90 L 01/05/21 05:30 36.8 C 85 20 117/73 89 L 01/04/21 21:30 37.6 C 96 18 116/70 91 L - Problem List & Annotations (1) Appendicitis SNOMED Code(s): 41129827 Code(s): K37 - UNSPECIFIED APPENDICITIS Status: Acute Current Visit: Yes - Problem List Review Problem List Initiated/Reviewed/Updated: Yes - My Orders Last 24 Hours: Active Orders 24 hr Category Date Time Status Patient Status [ADT] Routine ADT 01/04/21 14:36 Active Enoxaparin [Lovenox] Med 01/04/21 15:00 Active 40 mg SUBCUT Q24H polyethylene glycoL 3350 [MiraLAX] Med 01/04/21 20:00 Active 17 gm PO DAILY Medication Orders Diphenhydramine HCl (Diphenhydramine 50 Mg/Ml Sdv) 50 mg IVPUSH Q4H PRN PRN Reason: Itching Enoxaparin Sodium (Enoxaparin 40 Mg/0.4 Ml Syringe) 40 mg SUBCUT Q24H [facility] Last Admin: 01/04/21 15:21 Dose: 40 mg Documented by: EVERARDO Hydromorphone HCl (Hydromorphone 1 Mg/Ml Syringe) 0.5 mg IVPUSH Q1H PRN PRN Reason: Pain (severe 7-10) Last Admin: 01/04/21 06:41 Dose: 0.5 mg Documented by: Admin: 01/04/21 04:23 Dose: 0.5 mg Documented by: Admin: 01/03/21 16:16 Dose: 0.5 mg Documented by: Admin: 01/03/21 14:50 Dose: 0.5 mg Documented by: JOE Lactated Ringer's (Ringers, Lactated) 1,000 mls @ 125 mls/hr IV ASDIRECTED [facility] Last Admin: 01/04/21 12:37 Dose: 125 mls/hr Documented by: EVERARDO Piperacillin Sod/Tazobactam (Sod 3.375 gm/ Sodium Chloride) 50 mls @ 100 mls/hr IV Q6H [facility] Last Admin: 01/05/21 02:48 Dose: 100 mls/hr Documented by: Infusion: 01/04/21 20:06 Dose: 100 mls/hr Documented by: Admin: 01/04/21 19:36 Dose: 100 mls/hr Documented by: Infusion: 01/04/21 15:22 Dose: 100 mls/hr Documented by: Admin: 01/04/21 14:52 Dose: 100 mls/hr Documented by: Infusion: 01/04/21 08:27 Dose: 100 mls/hr Documented by: Admin: 01/04/21 07:57 Dose: 100 mls/hr Documented by: Infusion: 01/04/21 02:48 Dose: 100 mls/hr Documented by: Admin: 01/04/21 02:18 Dose: 100 mls/hr Documented by: Infusion: 01/03/21 21:09 Dose: 100 mls/hr Documented by: Admin: 01/03/21 20:39 Dose: 100 mls/hr Documented by: CLARA Acetaminophen 1,000 mg/ Premix 100 mls @ 400 mls/hr IV Q6H PRN PRN Reason: Pain Ketorolac Tromethamine (Ketorolac 30 Mg/Ml Sdv) 30 mg IVPUSH Q6H [facility] Stop: 01/08/21 19:29 Last Admin: 01/05/21 00:53 Dose: 30 mg Documented by: Admin: 01/04/21 19:37 Dose: 30 mg Documented by: Admin: 01/04/21 12:34 Dose: 30 mg Documented by: Admin: 01/04/21 07:59 Dose: 30 mg Documented by: Admin: 01/04/21 02:18 Dose: 30 mg Documented by: Admin: 01/03/21 20:39 Dose: Not Given Documented by: CLARA Metoclopramide HCl (Metoclopramide 10 Mg/2 Ml Sdv) 10 mg IVPUSH Q6H PRN PRN Reason: Nausea Ondansetron HCl (Ondansetron 4 Mg/2 Ml Sdv) 4 mg IVPUSH Q6H PRN PRN Reason: Nausea/Vomiting Oxycodone/Acetaminophen (Acetaminophen/Oxycodone 325-5 Mg Tab) 2 tab PO Q4H PRN PRN Reason: Pain (severe 7-10) Last Admin: 01/05/21 06:21 Dose: 2 tab Documented by: Admin: 01/05/21 00:52 Dose: 2 tab Documented by: Admin: 01/04/21 20:47 Dose: 1 tab Documented by: Admin: 01/04/21 12:34 Dose: 2 tab Documented by: Admin: 01/04/21 08:16 Dose: 2 tab Documented by: EVERARDO Polyethylene Glycol (Polyethylene Glycol 3350 Powder 17 Gm Packet) 17 gm PO DAILY [facility] Last Admin: 01/04/21 19:36 Dose: 17 gm Documented by: [id number] Promethazine HCl (Promethazine 25 Mg/Ml Sdv) 25 mg IM Q6H PRN PRN Reason: Nausea Sodium Chloride (Sodium Chloride 0.9% 10 Ml Syringe) 10 ml FLUSH ASDIRECTED PRN PRN Reason: Keep Vein Open Sodium Chloride (Sodium Chloride 0.9% 2.5 Ml Syringe) 2.5 ml FLUSH ASDIRECTED PRN PRN Reason: Keep Vein Open Sodium Chloride (Sodium Chloride 0.9% 10 Ml Sdv) 10 ml IV ASDIRECTED PRN PRN Reason: IV Use - Assessment Assessment (Free Text/Narrative):: Patient is feeling better today. His vital signs are stable this morning. He is passing gas and his belly feels softer but he is still distended. Drain output over 100ml yesterday. Drain output appears to be clearing up however which is encouraging. His white blood cell count is down to 14,000 today. We'll continue with IV antibiotics until his white count is within normal limits. Tolerating a regular diet with no nausea or vomiting. Will continue a regular diet, IV antibiotics, and potentially remove his drain tonight or tomorrow morning. Anticipate discharge tomorrow barring any new developments.
[2021-01-05] MEDS: Polyethylene Glycol 3350 Powder 17 GM Packet PO SCH (08:53)
[2021-01-05] MEDS: Enoxaparin 40 MG/0.4 ML Syringe SUBCUT SCH (15:15)
[2021-01-05] MEDS: Ketorolac 10 MG Tab PO SCH (20:18)
[2021-01-05] MEDS ORDERED: Ciprofloxacin 500 MG Tab PO SCH (21:00)
[2021-01-05] MEDS: metroNIDAZOLE 250 MG Tab PO SCH (22:52)
[2021-01-06] MEDS: Ketorolac 10 MG Tab PO SCH ×2 (01:15→06:32)
[2021-01-06] MEDS: Ondansetron 4 MG/2 ML SDV IVPUSH PRN ×2 (01:15→08:06)
[2021-01-06] MEDS: Acetaminophen/oxyCODONE 325-5 MG Tab PO PRN (03:09)
[2021-01-06] MEDS: metroNIDAZOLE 250 MG Tab PO SCH (06:32)
--- NOTE | 2021-01-06 07:42 | PCM.DCSUM1 ---
Discharge Summary - Discharge Data Discharge Disposition: Home, Self-Care 01 Condition: Stable - Referral to Home Health Primary Care Physician: PCP None - Discharge Diagnosis/Problem(s) (1) Appendicitis SNOMED Code(s): 17149680 ICD Code: K37 - UNSPECIFIED APPENDICITIS Status: Acute Current Visit: Yes - Patient Summary/Data Operative Procedure(s) Performed: Laparoscopic appendectomy - Discharge Plan Home Medications: Home Meds . [No Known Home Meds] 01/03/21 [History] Patient Handouts: Laparoscopic Appendectomy, Adult, Care After, [id number], Laparoscopic Appendectomy, Adult Referrals: Iram Villatoro MD [Physician] - 01/24/21 1:30 pm - Patient Data Vitals - Most Recent: Last Vital Signs Temp 36.9 C 01/06/21 07:05 Pulse 86 01/06/21 07:05 Resp 20 01/06/21 07:05 BP 132/82 01/06/21 07:05 Pulse Ox 92 L 01/06/21 07:05 Weight - Most Recent: 84.051 kg I&O - Last 24 hours: Intake & Output 01/05/21 01/06/21 01/06/21 22:59 06:59 14:59 Intake Total 980 300 Output Total 1680 290 Balance -700 10 Lab Results - Last 24 hrs: Laboratory Results - last 24 hr 01/06/21 Range/Units 05:40 WBC 14.51 H (4.0-11.0) K/uL RBC 4.29 L (4.50-5.90) M/uL Hgb 13.8 (13.0-17.0) g/dL Hct 41.2 (38.0-50.0) % MCV 96.0 (80.0-98.0) fL MCH 32.2 H (27.0-32.0) pg MCHC 33.5 (31.0-37.0) g/dL RDW Std Deviation 44.8 (28.0-62.0) fl RDW Coeff of Ben 13 (11.0-15.0) % Plt Count 323 (150-400) K/uL MPV 9.70 (7.40-12.00) fL Nucleated RBC % 0.0 /100WBC Nucleated RBCs # 0 K/uL Med Orders - Current: Current Medications Ciprofloxacin (Ciprofloxacin 500 Mg Tab) 500 mg PO BID [facility] Last Admin: 01/05/21 20:18 Dose: 500 mg Documented by: Diphenhydramine HCl (Diphenhydramine 50 Mg/Ml Sdv) 50 mg IVPUSH Q4H PRN PRN Reason: Itching Enoxaparin Sodium (Enoxaparin 40 Mg/0.4 Ml Syringe) 40 mg SUBCUT Q24H [facility] Last Admin: 01/05/21 15:15 Dose: 40 mg Documented by: Hydromorphone HCl (Hydromorphone 1 Mg/Ml Syringe) 0.5 mg IVPUSH Q1H PRN PRN Reason: Pain (severe 7-10) Last Admin: 01/04/21 06:41 Dose: 0.5 mg Documented by: Lactated Ringer's (Ringers, Lactated) 1,000 mls @ 125 mls/hr IV ASDIRECTED [facility] Last Admin: 01/04/21 12:37 Dose: 125 mls/hr Documented by: Ketorolac Tromethamine (Ketorolac 10 Mg Tab) 10 mg PO Q6H [facility] Stop: 01/07/21 19:31 Last Admin: 01/06/21 06:32 Dose: 10 mg Documented by: Metoclopramide HCl (Metoclopramide 10 Mg/2 Ml Sdv) 10 mg IVPUSH Q6H PRN PRN Reason: Nausea Last Admin: 01/06/21 03:23 Dose: 10 mg Documented by: Metronidazole (Metronidazole 250 Mg Tab) 500 mg PO Q8HR [facility] Last Admin: 01/06/21 06:32 Dose: 500 mg Documented by: Ondansetron HCl (Ondansetron 4 Mg/2 Ml Sdv) 4 mg IVPUSH Q6H PRN PRN Reason: Nausea/Vomiting Last Admin: 01/06/21 01:15 Dose: 4 mg Documented by: Oxycodone/Acetaminophen (Acetaminophen/Oxycodone 325-5 Mg Tab) 2 tab PO Q4H PRN PRN Reason: Pain (severe 7-10) Last Admin: 01/06/21 03:09 Dose: 2 tab Documented by: Polyethylene Glycol (Polyethylene Glycol 3350 Powder 17 Gm Packet) 17 gm PO DAILY [facility] Last Admin: 01/05/21 08:53 Dose: 17 gm Documented by: Promethazine HCl (Promethazine 25 Mg/Ml Sdv) 25 mg IM Q6H PRN PRN Reason: Nausea Sodium Chloride (Sodium Chloride 0.9% 10 Ml Syringe) 10 ml FLUSH ASDIRECTED PRN PRN Reason: Keep Vein Open Sodium Chloride (Sodium Chloride 0.9% 2.5 Ml Syringe) 2.5 ml FLUSH ASDIRECTED PRN PRN Reason: Keep Vein Open Sodium Chloride (Sodium Chloride 0.9% 10 Ml Sdv) 10 ml IV ASDIRECTED PRN PRN Reason: IV Use Discontinued Medications Albuterol (Albuterol 0.083% 2.5 Mg/3 Ml Neb Soln) 2.5 mg NEB ONETIME PRN PRN Reason: Wheezing Bupivacaine HCl (Bupivacaine 0.5% 30 Ml Sdv) Confirm Administered Dose 30 ml .ROUTE .STK-MED ONE Stop: 01/03/21 15:34 Cefazolin Sodium (Cefazolin 1 Gm Vial) Confirm Administered Dose 1 gm .ROUTE .STK-MED ONE Stop: 01/03/21 17:58 Cefazolin Sodium (Cefazolin 1 Gm Vial) Confirm Administered Dose 1 gm .ROUTE .STK-MED ONE Stop: 01/03/21 18:42 Droperidol (Droperidol 5 Mg/2 Ml Sdv) 0.625 mg IVPUSH ONETIME PRN PRN Reason: Nausea/Vomiting Fentanyl (Fentanyl 250 Mcg/5 Ml Sdv) Confirm Administered Dose 250 mcg .ROUTE .STK-MED ONE Stop: 01/03/21 16:12 Fentanyl (Fentanyl 100 Mcg/2 Ml Sdv) 50 mcg IVPUSH Q5M PRN PRN Reason: Pain Glycopyrrolate (Glycopyrrolate 0.2 Mg/Ml Sdv) Confirm Administered Dose 0.2 mg .ROUTE .STK-MED ONE Stop: 01/03/21 16:13 Hydromorphone HCl (Hydromorphone 1 Mg/Ml Syringe) 1 mg IVPUSH ONETIME ONE Stop: 01/03/21 10:52 Last Admin: 01/03/21 11:08 Dose: 1 mg Documented by: Hydromorphone HCl (Hydromorphone 2 Mg/Ml Syringe) 0.5 mg IVPUSH Q10M PRN PRN Reason: Pain (moderate 4-6) Hydromorphone HCl (Hydromorphone 2 Mg/Ml Syringe) Confirm Administered Dose 2 mg .ROUTE .STK-MED ONE Stop: 01/03/21 17:18 Hydromorphone HCl (Hydromorphone 2 Mg/Ml Syringe) Confirm Administered Dose 2 mg .ROUTE .STK-MED ONE Stop: 01/03/21 17:42 Sodium Chloride (Normal Saline) 1,000 mls @ 999 mls/hr IV STAT ONE Stop: 01/03/21 11:51 Last Admin: 01/03/21 11:08 Dose: 999 mls/hr Documented by: Piperacillin Sod/Tazobactam (Sod 3.375 gm/ Sodium Chloride) 50 mls @ 100 mls/hr IV ONETIME ONE Stop: 01/03/21 13:30 Last Admin: 01/03/21 14:10 Dose: 100 mls/hr Documented by: Piperacillin Sod/Tazobactam (Sod 3.375 gm/ Sodium Chloride) 50 mls @ 100 mls/hr IV Q6H [facility] Last Admin: 01/05/21 15:15 Dose: 100 mls/hr Documented by: Lactated Ringer's (Ringers, Lactated) 1,000 mls @ 125 mls/hr IV ASDIRECTED [facility] Last Admin: 01/04/21 04:24 Dose: 125 mls/hr Documented by: Acetaminophen 1,000 mg/ Premix 100 mls @ 400 mls/hr IV Q6H PRN PRN Reason: Pain Ketorolac Tromethamine (Ketorolac 30 Mg/Ml Sdv) Confirm Administered Dose 30 mg .ROUTE .STK-MED ONE Stop: 01/03/21 16:13 Ketorolac Tromethamine (Ketorolac 30 Mg/Ml Sdv) 30 mg IVPUSH Q6H [facility] Stop: 01/08/21 19:29 Last Admin: 01/05/21 14:04 Dose: 30 mg Documented by: Lidocaine (Lidocaine 2% 5 Ml Sdv) Confirm Administered Dose 5 ml .ROUTE .STK-MED ONE Stop: 01/03/21 16:13 Metoclopramide HCl (Metoclopramide 10 Mg/2 Ml Sdv) 10 mg IVPUSH ONETIME PRN PRN Reason: Nausea/Vomiting Midazolam HCl (Midazolam 1 Mg/Ml 2 Ml Sdv) Confirm Administered Dose 2 mg .ROUTE .STK-MED ONE Stop: 01/03/21 16:12 Morphine Sulfate (Morphine 2 Mg/Ml Syringe) 2 mg IVPUSH Q10M PRN PRN Reason: Pain (severe 7-10) Morphine Sulfate (Morphine 4 Mg/Ml Syringe) 4 mg IVPUSH ONETIME ONE Stop: 01/03/21 12:50 Last Admin: 01/03/21 13:07 Dose: 4 mg Documented by: Naloxone HCl (Naloxone 0.4 Mg/Ml Syringe) 0.1 mg IVPUSH ASDIRECTED PRN PRN Reason: Respiratory Depression Octyl Cyanoacrylate (Octyl 2-Cyanoacrylate 1 Tube) Confirm Administered Dose 1 applic .ROUTE .STK-MED ONE Stop: 01/03/21 15:34 Ondansetron HCl (Ondansetron 4 Mg/2 Ml Sdv) 4 mg IVPUSH ONETIME ONE Stop: 01/03/21 10:52 Last Admin: 01/03/21 11:08 Dose: 4 mg Documented by: Ondansetron HCl (Ondansetron 4 Mg/2 Ml Sdv) 4 mg IVPUSH ONETIME PRN PRN Reason: Nausea/Vomiting Ondansetron HCl (Ondansetron 4 Mg/2 Ml Sdv) 4 mg IVPUSH ONETIME ONE Stop: 01/03/21 12:50 Last Admin: 01/03/21 13:12 Dose: 4 mg Documented by: Ondansetron HCl (Ondansetron 4 Mg/2 Ml Sdv) Confirm Administered Dose 4 mg .ROUTE .STK-MED ONE Stop: 01/03/21 16:13 Propofol (Propofol 200 Mg/20 Ml Sdv) Confirm Administered Dose 200 mg .ROUTE .STK-MED ONE Stop: 01/03/21 16:12 Propofol (Propofol 200 Mg/20 Ml Sdv) Confirm Administered Dose 200 mg .ROUTE .STK-MED ONE Stop: 01/03/21 17:35 Rocuronium [place] (Rocuronium [place] 50 Mg/5 Ml Syringe) Confirm Administered Dose 50 mg .ROUTE .STK-MED ONE Stop: 01/03/21 16:13 Rocuronium [place] (Rocuronium [place] 50 Mg/5 Ml Syringe) Confirm Administered Dose 50 mg .ROUTE .STK-MED ONE Stop: 01/03/21 17:35 Scopolamine (Scopolamine 1.5 Mg Transdermal Patch) 1.5 mg TRDERM ONETIME ONE Stop: 01/03/21 15:46 Last Admin: 01/03/21 16:08 Dose: 1.5 mg Documented by: Sugammadex Sodium (Sugammadex Sodium 200 Mg/2 Ml Vial) Confirm Administered Dose 200 mg .ROUTE .STK-MED ONE Stop: 01/03/21 16:13
[2021-01-06] MEDS ORDERED: Bisacodyl 10 MG Supp RECTAL PRN (08:07)
--- NOTE | 2021-01-06 08:14 | PCM.SN.2 ---
- Free Text/Narrative Note: Patient was doing well last evening. Passing gas, had small BM, tolerating a regular diet. Overnight the patient had increased abdominal distension. This morning he is having more abdominal pain as well as nausea and heartburn. He states that he feels like he cannot pass gas/stool. His WBC is unchanged at 14K. Vitals are stable other than mild tachycardia. On physical exam his abdomen is distended, unlike yesterday. He has no rebound or guarding but has in pain with any movement. He complains of pain along his left side. His drain which runs along the pericolic gutter and along the right liver edge had clear yellow output. The output was >200ml overnight, but given it was only serous, it was removed. He appears to be developing an ileus. I discontinued his diet. He will be npo. I am getting an abdominal xr. Will start IV fluids, restarting IV antibiotics. Will allow patient to have po bowel meds to see if this improves his symptoms. Will make him inpatient.
[2021-01-06] MEDS ORDERED: Scopolamine 1.5 MG Transdermal Patch TRDERM SCH (08:15)
[2021-01-06] MEDS ORDERED: Acetaminophen 1,000 MG in Premix Bag 1 BAG IV PRN (08:30)
--- NOTE | 2021-01-06 09:01 | CR ---
Indication: Possible ileus status post ruptured appendicitis Technique: Single supine view abdomen. Comparison: None available. Findings: There are multiple dilated fluid and air containing loops of central small bowel. There is a mild to moderate amount of intracolonic fecal distention. There is no intra-abdominal free air or pathologic calcification. There is no acute osseous abnormality. Impression: Multiple dilated air and fluid containing loops of central small bowel commensurate with postoperative ileus. Dictated by Tyrese Quinonez MD @ 01/06/2021 9:00:[address] Tyrese Quinonez @ Jan 06 2021 9:00AM
[2021-01-06] MEDS: Ketorolac 15 MG/ML SDV IVPUSH SCH ×3 (09:36→20:36)
[2021-01-06] MEDS: Piperacillin/Tazobactam 3.375 GM in Sodium Chloride 0.9% 50 ML IV SCH ×3 (09:39→20:37)
[2021-01-06] MEDS: Calcium Carbonate 500 MG Tab.Chew PO PRN (09:52)
[2021-01-06] MEDS: Lactated Ringers 1,000 ML IV SCH ×2 (10:49→19:13)
[2021-01-06] MEDS: Enoxaparin 40 MG/0.4 ML Syringe SUBCUT SCH (14:45)
--- NOTE | 2021-01-06 15:38 | PCM.SURGPN ---
- General Info Date of Service: 01/06/21 Date of Surgery/Procedure: 01/03/21 POD#: 3 Functional Status: Reports: Other (Patient appeared stable last evening and was tolerating a regular diet, passing gas, and it had a bowel movement. This morning he was complaining of heartburn, burping and more abdominal distention as well as right-sided back pain. He was slightly tachycardic this morning the very uncomfortable. ) - Review of Systems HEENT: Reports: No Symptoms Pulmonary: Reports: No Symptoms Cardiovascular: Reports: No Symptoms Gastrointestinal: Reports: Abdominal Pain, Constipation, Decreased Appetite, Nausea. Denies: Diarrhea, Flatus, Vomiting Genitourinary: Reports: No Symptoms Musculoskeletal: Reports: Back Pain Skin: Reports: No Symptoms - Patient Data Vitals - Most Recent: Last Vital Signs Temp 37.2 C 01/06/21 11:37 Pulse 82 01/06/21 11:37 Resp 18 01/06/21 11:37 BP 132/83 01/06/21 11:37 Pulse Ox 92 L 01/06/21 11:37 Weight - Most Recent: 84.051 kg I&O - Last 24 Hours: Intake & Output 01/06/21 01/06/21 01/06/21 06:59 14:59 22:59 Intake Total 300 Output Total 290 Balance 10 Lab Results Last 24 Hrs: Laboratory Results - last 24 hr 01/06/21 Range/Units 05:40 WBC 14.51 H (4.0-11.0) K/uL RBC 4.29 L (4.50-5.90) M/uL Hgb 13.8 (13.0-17.0) g/dL Hct 41.2 (38.0-50.0) % MCV 96.0 (80.0-98.0) fL MCH 32.2 H (27.0-32.0) pg MCHC 33.5 (31.0-37.0) g/dL RDW Std Deviation 44.8 (28.0-62.0) fl RDW Coeff of Ben 13 (11.0-15.0) % Plt Count 323 (150-400) K/uL MPV 9.70 (7.40-12.00) fL Nucleated RBC % 0.0 /100WBC Nucleated RBCs # 0 K/uL Med Orders - Current: Current Medications Bisacodyl (Bisacodyl 10 Mg Supp) 10 mg RECTAL DAILY PRN PRN Reason: Constipation Calcium Carbonate/Glycine (Calcium Carbonate 500 Mg Tab.Chew) 500 mg PO Q2HR PRN PRN Reason: Indigestion Last Admin: 01/06/21 09:52 Dose: 500 mg Documented by: Diphenhydramine HCl (Diphenhydramine 50 Mg/Ml Sdv) 50 mg IVPUSH Q4H PRN PRN Reason: Itching Enoxaparin Sodium (Enoxaparin 40 Mg/0.4 Ml Syringe) 40 mg SUBCUT Q24H [facility] Last Admin: 01/06/21 14:45 Dose: 40 mg Documented by: Hydromorphone HCl (Hydromorphone 1 Mg/Ml Syringe) 0.5 mg IVPUSH Q1H PRN PRN Reason: Pain (severe 7-10) Last Admin: 01/04/21 06:41 Dose: 0.5 mg Documented by: Lactated Ringer's (Ringers, Lactated) 1,000 mls @ 125 mls/hr IV ASDIRECTED [facility] Last Admin: 01/04/21 12:37 Dose: 125 mls/hr Documented by: Lactated Ringer's (Ringers, Lactated) 1,000 mls @ 125 mls/hr IV ASDIRECTED [facility] Last Admin: 01/06/21 10:49 Dose: 125 mls/hr Documented by: Piperacillin Sod/Tazobactam (Sod 3.375 gm/ Sodium Chloride) 50 mls @ 100 mls/hr IV Q6H [facility] Last Admin: 01/06/21 14:45 Dose: 100 mls/hr Documented by: Acetaminophen 1,000 mg/ Premix 100 mls @ 400 mls/hr IV ONETIME PRN PRN Reason: PAIN Ketorolac Tromethamine (Ketorolac 15 Mg/Ml Sdv) 15 mg IVPUSH Q6H [facility] Stop: 01/11/21 08:16 Last Admin: 01/06/21 14:44 Dose: 15 mg Documented by: Ondansetron HCl (Ondansetron 4 Mg/2 Ml Sdv) 4 mg IVPUSH Q6H PRN PRN Reason: Nausea/Vomiting Last Admin: 01/06/21 08:06 Dose: 4 mg Documented by: Promethazine HCl (Promethazine 25 Mg/Ml Sdv) 25 mg IM Q6H PRN PRN Reason: Nausea Scopolamine (Scopolamine 1.5 Mg Transdermal Patch) 1.5 mg TRDERM Q72H [facility] Last Admin: 01/06/21 10:07 Dose: 1.5 mg Documented by: Sodium Chloride (Sodium Chloride 0.9% 10 Ml Syringe) 10 ml FLUSH ASDIRECTED PRN PRN Reason: Keep Vein Open Sodium Chloride (Sodium Chloride 0.9% 2.5 Ml Syringe) 2.5 ml FLUSH ASDIRECTED PRN PRN Reason: Keep Vein Open Sodium Chloride (Sodium Chloride 0.9% 10 Ml Sdv) 10 ml IV ASDIRECTED PRN PRN Reason: IV Use Discontinued Medications Albuterol (Albuterol 0.083% 2.5 Mg/3 Ml Neb Soln) 2.5 mg NEB ONETIME PRN PRN Reason: Wheezing Bupivacaine HCl (Bupivacaine 0.5% 30 Ml Sdv) Confirm Administered Dose 30 ml .ROUTE .STK-MED ONE Stop: 01/03/21 15:34 Cefazolin Sodium (Cefazolin 1 Gm Vial) Confirm Administered Dose 1 gm .ROUTE .STK-MED ONE Stop: 01/03/21 17:58 Cefazolin Sodium (Cefazolin 1 Gm Vial) Confirm Administered Dose 1 gm .ROUTE .STK-MED ONE Stop: 01/03/21 18:42 Ciprofloxacin (Ciprofloxacin 500 Mg Tab) 500 mg PO BID [facility] Last Admin: 01/05/21 20:18 Dose: 500 mg Documented by: Droperidol (Droperidol 5 Mg/2 Ml Sdv) 0.625 mg IVPUSH ONETIME PRN PRN Reason: Nausea/Vomiting Fentanyl (Fentanyl 250 Mcg/5 Ml Sdv) Confirm Administered Dose 250 mcg .ROUTE .STK-MED ONE Stop: 01/03/21 16:12 Fentanyl (Fentanyl 100 Mcg/2 Ml Sdv) 50 mcg IVPUSH Q5M PRN PRN Reason: Pain Glycopyrrolate (Glycopyrrolate 0.2 Mg/Ml Sdv) Confirm Administered Dose 0.2 mg .ROUTE .STK-MED ONE Stop: 01/03/21 16:13 Hydromorphone HCl (Hydromorphone 1 Mg/Ml Syringe) 1 mg IVPUSH ONETIME ONE Stop: 01/03/21 10:52 Last Admin: 01/03/21 11:08 Dose: 1 mg Documented by: Hydromorphone HCl (Hydromorphone 2 Mg/Ml Syringe) 0.5 mg IVPUSH Q10M PRN PRN Reason: Pain (moderate 4-6) Hydromorphone HCl (Hydromorphone 2 Mg/Ml Syringe) Confirm Administered Dose 2 mg .ROUTE .STK-MED ONE Stop: 01/03/21 17:18 Hydromorphone HCl (Hydromorphone 2 Mg/Ml Syringe) Confirm Administered Dose 2 mg .ROUTE .STK-MED ONE Stop: 01/03/21 17:42 Sodium Chloride (Normal Saline) 1,000 mls @ 999 mls/hr IV STAT ONE Stop: 01/03/21 11:51 Last Admin: 01/03/21 11:08 Dose: 999 mls/hr Documented by: Piperacillin Sod/Tazobactam (Sod 3.375 gm/ Sodium Chloride) 50 mls @ 100 mls/hr IV ONETIME ONE Stop: 01/03/21 13:30 Last Admin: 01/03/21 14:10 Dose: 100 mls/hr Documented by: Piperacillin Sod/Tazobactam (Sod 3.375 gm/ Sodium Chloride) 50 mls @ 100 mls/hr IV Q6H [facility] Last Admin: 01/05/21 15:15 Dose: 100 mls/hr Documented by: Lactated Ringer's (Ringers, Lactated) 1,000 mls @ 125 mls/hr IV ASDIRECTED [facility] Last Admin: 01/04/21 04:24 Dose: 125 mls/hr Documented by: Acetaminophen 1,000 mg/ Premix 100 mls @ 400 mls/hr IV Q6H PRN PRN Reason: Pain Ketorolac Tromethamine (Ketorolac 30 Mg/Ml Sdv) Confirm Administered Dose 30 mg .ROUTE .STK-MED ONE Stop: 01/03/21 16:13 Ketorolac Tromethamine (Ketorolac 30 Mg/Ml Sdv) 30 mg IVPUSH Q6H [facility] Stop: 01/08/21 19:29 Last Admin: 01/05/21 14:04 Dose: 30 mg Documented by: Ketorolac Tromethamine (Ketorolac 10 Mg Tab) 10 mg PO Q6H [facility] Stop: 01/07/21 19:31 Last Admin: 01/06/21 06:32 Dose: 10 mg Documented by: Lidocaine (Lidocaine 2% 5 Ml Sdv) Confirm Administered Dose 5 ml .ROUTE .STK-MED ONE Stop: 01/03/21 16:13 Metoclopramide HCl (Metoclopramide 10 Mg/2 Ml Sdv) 10 mg IVPUSH ONETIME PRN PRN Reason: Nausea/Vomiting Metoclopramide HCl (Metoclopramide 10 Mg/2 Ml Sdv) 10 mg IVPUSH Q6H PRN PRN Reason: Nausea Last Admin: 01/06/21 03:23 Dose: 10 mg Documented by: Metronidazole (Metronidazole 250 Mg Tab) 500 mg PO Q8HR [facility] Last Admin: 01/06/21 06:32 Dose: 500 mg Documented by: Midazolam HCl (Midazolam 1 Mg/Ml 2 Ml Sdv) Confirm Administered Dose 2 mg .ROUTE .STK-MED ONE Stop: 01/03/21 16:12 Morphine Sulfate (Morphine 2 Mg/Ml Syringe) 2 mg IVPUSH Q10M PRN PRN Reason: Pain (severe 7-10) Morphine Sulfate (Morphine 4 Mg/Ml Syringe) 4 mg IVPUSH ONETIME ONE Stop: 01/03/21 12:50 Last Admin: 01/03/21 13:07 Dose: 4 mg Documented by: Naloxone HCl (Naloxone 0.4 Mg/Ml Syringe) 0.1 mg IVPUSH ASDIRECTED PRN PRN Reason: Respiratory Depression Octyl Cyanoacrylate (Octyl 2-Cyanoacrylate 1 Tube) Confirm Administered Dose 1 applic .ROUTE .STK-MED ONE Stop: 01/03/21 15:34 Ondansetron HCl (Ondansetron 4 Mg/2 Ml Sdv) 4 mg IVPUSH ONETIME ONE Stop: 01/03/21 10:52 Last Admin: 01/03/21 11:08 Dose: 4 mg Documented by: Ondansetron HCl (Ondansetron 4 Mg/2 Ml Sdv) 4 mg IVPUSH ONETIME PRN PRN Reason: Nausea/Vomiting Ondansetron HCl (Ondansetron 4 Mg/2 Ml Sdv) 4 mg IVPUSH ONETIME ONE Stop: 01/03/21 12:50 Last Admin: 01/03/21 13:12 Dose: 4 mg Documented by: Ondansetron HCl (Ondansetron 4 Mg/2 Ml Sdv) Confirm Administered Dose 4 mg .ROUTE .STK-MED ONE Stop: 01/03/21 16:13 Oxycodone/Acetaminophen (Acetaminophen/Oxycodone 325-5 Mg Tab) 2 tab PO Q4H PRN PRN Reason: Pain (severe 7-10) Last Admin: 01/06/21 03:09 Dose: 2 tab Documented by: Polyethylene Glycol (Polyethylene Glycol 3350 Powder 17 Gm Packet) 17 gm PO DAILY [facility] Last Admin: 01/05/21 08:53 Dose: 17 gm Documented by: Propofol (Propofol 200 Mg/20 Ml Sdv) Confirm Administered Dose 200 mg .ROUTE .STK-MED ONE Stop: 01/03/21 16:12 Propofol (Propofol 200 Mg/20 Ml Sdv) Confirm Administered Dose 200 mg .ROUTE .STK-MED ONE Stop: 01/03/21 17:35 Rocuronium Strand[place] (Rocuronium Strand[place] 50 Mg/5 Ml Syringe) Confirm Administered Dose 50 mg .ROUTE .STK-MED ONE Stop: 01/03/21 16:13 Rocuronium [place] (Rocuronium [place] 50 Mg/5 Ml Syringe) Confirm Administered Dose 50 mg .ROUTE .STK-MED ONE Stop: 01/03/21 17:35 Scopolamine (Scopolamine 1.5 Mg Transdermal Patch) 1.5 mg TRDERM ONETIME ONE Stop: 01/03/21 15:46 Last Admin: 01/03/21 16:08 Dose: 1.5 mg Documented by: Senna/Docusate Sodium (Docusate Sodium/Sennosides 50-8.6 Mg Tab) 1 tab PO ONETIME ONE Stop: 01/06/21 07:48 Last Admin: 01/06/21 09:36 Dose: 1 tab Documented by: Sugammadex Sodium (Sugammadex Sodium 200 Mg/2 Ml Vial) Confirm Administered Dose 200 mg .ROUTE .STK-MED ONE Stop: 01/03/21 16:13 - Exam Wound/Incisions: Healing Well, Other General: Alert (Drain with clear serous fluid.), Oriented, Moderate Distress, Severe Distress HEENT: Pupils Equal, Pupils Reactive Lungs: Normal Respiratory Effort Cardiovascular: Tachycardia GI/Abdominal Exam: Soft, Distended Sepsis Event Note - Evaluation Sepsis Screening Result: No Definite Risk - Focused Exam Vital Signs: Vital Signs Temp Pulse Resp BP Pulse Ox 01/06/21 11:37 37.2 C 82 18 132/83 92 L 01/06/21 07:05 36.9 C 86 20 132/82 92 L - Problem List & Annotations (1) Appendicitis SNOMED Code(s): 46819418 Code(s): K37 - UNSPECIFIED APPENDICITIS Status: Acute Current Visit: Yes Qualifiers: Appendicitis type: acute appendicitis Acute appendicitis type: with localized peritonitis Appendicitis gangrene presence: with gangrene Appendicitis perforation presence: with perforation Appendicitis abscess presence: without abscess Qualified Code(s): K35.32 - Acute appendicitis with perforation and localized peritonitis, without abscess (2) Postoperative ileus SNOMED Code(s): 269810337 Code(s): K91.89 - OTH POSTPROCEDURAL COMPLICATIONS AND DISORDERS OF DGSTV SYS; K56.7 - ILEUS, UNSPECIFIED Status: Acute Current Visit: Yes - Problem List Review Problem List Initiated/Reviewed/Updated: Yes - My Orders Last 24 Hours: Active Orders 24 hr Category Date Time Status Patient Status [ADT] Routine ADT 01/06/21 08:14 Active NPO Now [Nothing per Oral Now Diet] [DIET] Diet 01/06/21 Lunch Active Acetaminophen [Ofirmev 1000 mg/100 ml] 1,000 mg Med 01/06/21 08:30 Active Premix Bag 1 bag IV ONETIME Calcium Carbonate [Tums] Med 01/06/21 07:47 Active 500 mg PO Q2HR PRN Ketorolac [Toradol] Med 01/06/21 08:30 Active 15 mg IVPUSH Q6H Lactated Ringers [Ringers, Lactated] 1,000 ml Med 01/06/21 08:15 Active IV ASDIRECTED Piperacillin/Tazobactam [Piperacil-Tazobact] 3.375 gm Med 01/06/21 08:15 Active Sodium Chloride 0.9% [Normal Saline] 50 ml IV Q6H Scopolamine [Transderm-Scop] Med 01/06/21 08:15 Active 1.5 mg TRDERM Q72H bisacodyL [Dulcolax] Med 01/06/21 08:07 Active 10 mg RECTAL DAILY PRN Medication Orders Bisacodyl (Bisacodyl 10 Mg Supp) 10 mg RECTAL DAILY PRN PRN Reason: Constipation Calcium Carbonate/Glycine (Calcium Carbonate 500 Mg Tab.Chew) 500 mg PO Q2HR PRN PRN Reason: Indigestion Last Admin: 01/06/21 09:52 Dose: 500 mg Documented by: KENDY Blancoigned by: MITRA Diphenhydramine HCl (Diphenhydramine 50 Mg/Ml Sdv) 50 mg IVPUSH Q4H PRN PRN Reason: Itching Enoxaparin Sodium (Enoxaparin 40 Mg/0.4 Ml Syringe) 40 mg SUBCUT Q24H [facility] Last Admin: 01/06/21 14:45 Dose: 40 mg Documented by: Admin: 01/05/21 15:15 Dose: 40 mg Documented by: Admin: 01/04/21 15:21 Dose: 40 mg Documented by: EVERARDO Hydromorphone HCl (Hydromorphone 1 Mg/Ml Syringe) 0.5 mg IVPUSH Q1H PRN PRN Reason: Pain (severe 7-10) Last Admin: 01/04/21 06:41 Dose: 0.5 mg Documented by: Admin: 01/04/21 04:23 Dose: 0.5 mg Documented by: Admin: 01/03/21 16:16 Dose: 0.5 mg Documented by: Admin: 01/03/21 14:50 Dose: 0.5 mg Documented by: JOE Lactated Ringer's (Ringers, Lactated) 1,000 mls @ 125 mls/hr IV ASDIRECTED [facility] Last Admin: 01/04/21 12:37 Dose: 125 mls/hr Documented by: EVERARDO Lactated Ringer's (Ringers, Lactated) 1,000 mls @ 125 mls/hr IV ASDIRECTED [facility] Last Admin: 01/06/21 10:49 Dose: 125 mls/hr Documented by: BEVERLY Piperacillin Sod/Tazobactam (Sod 3.375 gm/ Sodium Chloride) 50 mls @ 100 mls/hr IV Q6H [facility] Last Admin: 01/06/21 14:45 Dose: 100 mls/hr Documented by: Infusion: 01/06/21 10:09 Dose: 100 mls/hr Documented by: Admin: 01/06/21 09:39 Dose: 100 mls/hr Documented by: BEVERLY Acetaminophen 1,000 mg/ Premix 100 mls @ 400 mls/hr IV ONETIME PRN PRN Reason: PAIN Ketorolac Tromethamine (Ketorolac 15 Mg/Ml Sdv) 15 mg IVPUSH Q6H [facility] Stop: 01/11/21 08:16 Last Admin: 01/06/21 14:44 Dose: 15 mg Documented by: Admin: 01/06/21 09:36 Dose: 15 mg Documented by: BEVERLY Ondansetron HCl (Ondansetron 4 Mg/2 Ml Sdv) 4 mg IVPUSH Q6H PRN PRN Reason: Nausea/Vomiting Last Admin: 01/06/21 08:06 Dose: 4 mg Documented by: Admin: 01/06/21 01:15 Dose: 4 mg Documented by: DEANNA Promethazine HCl (Promethazine 25 Mg/Ml Sdv) 25 mg IM Q6H PRN PRN Reason: Nausea Scopolamine (Scopolamine 1.5 Mg Transdermal Patch) 1.5 mg TRDERM Q72H [facility] Last Admin: 01/06/21 10:07 Dose: 1.5 mg Documented by: KENDY Cosigned by: MITRA Sodium Chloride (Sodium Chloride 0.9% 10 Ml Syringe) 10 ml FLUSH ASDIRECTED PRN PRN Reason: Keep Vein Open Sodium Chloride (Sodium Chloride 0.9% 2.5 Ml Syringe) 2.5 ml FLUSH ASDIRECTED PRN PRN Reason: Keep Vein Open Sodium Chloride (Sodium Chloride 0.9% 10 Ml Sdv) 10 ml IV ASDIRECTED PRN PRN Reason: IV Use - Plan Plan (Free Text/Narrative):: I removed the patient's drain as it was only putting out clear fluid and seemed to be causing some of his pain. After the drain was removed the patient's pain improved significantly. He was made nothing by mouth started back on IV fluids IV antibiotics and given scheduled Tylenol and Toradol. I discontinued his Percocet. This afternoon he went to revisit the patient. He felt much more comfortable. He was still burping the felt less nauseated. An x-ray of the abdomen pelvis showed dilated small bowel loops consistent with an ileus. The patient was asking for food however I explained that he still appears distended and is not passing gas or having bowel movements yet. I told him that once he starts having regular bowel movements and passing more gas with less abdominal distention and I will slowly advance his diet. His vital signs were stable this afternoon but his belly still appeared distended on physical exam. We'll continue with conservative management for now. No need for an NG unless the patient starts vomiting.
[2021-01-07] MEDS: Piperacillin/Tazobactam 3.375 GM in Sodium Chloride 0.9% 50 ML IV SCH (02:38)
[2021-01-07] MEDS: Ketorolac 15 MG/ML SDV IVPUSH SCH (02:39)
[2021-01-07] MEDS: Lactated Ringers 1,000 ML IV SCH (04:15)
[2021-01-07 06:56] LABS: BLOOD UREA NITROGEN,BUN 18 mg/dL (7.0-18.0); CARBON DIOXIDE,CO2 27.9 mmol/L (21.0-32.0); CHLORIDE,CL 100 mmol/L (98-107); GLUCOSE RANDOM 85 mg/dL (74-106); POTASSIUM,K 4.7 mmol/L (3.5-5.1); SODIUM,NA 137 mmol/L (136-148)
[2021-01-07] MEDS ORDERED: Ketorolac 10 MG Tab PO PRN (07:45)
[2021-01-07] MEDS ORDERED: Acetaminophen/oxyCODONE 325-5 MG Tab PO PRN (07:46)
[2021-01-07] MEDS: metroNIDAZOLE 250 MG Tab PO SCH ×2 (08:17→16:06)
[2021-01-07] MEDS ORDERED: Ciprofloxacin 500 MG Tab PO SCH (09:00)
[2021-01-07] MEDS: Calcium Carbonate 500 MG Tab.Chew PO PRN (11:51)
--- NOTE | 2021-01-07 16:01 | PCM.DCSUM1 ---
Discharge Summary - Hospital Course Free Text/Narrative:: Patient is a 50 year old male who presented with appendicitis. He underwent a laparoscopic appendectomy. The appendix ruptured during the case. He had a drain placed during the case. This originally put out cloudy fluid. He was kept on IV antibiotics and gradually his WBC came down. POD #3 he developed an ileus. The drain output was serous and clear so it was removed. He was kept NPO and given IV fluids. His nausea improved. He was given senna-docusate and miralax. He had several BMs that evening and today has had 3 more bowel movements. His abdomen was less distended this am. He tolerated a clear and soft diet. He ate some bites of toast and mashed potatoes this afternoon. This made him feel slightly nauseated. He has not used any narcotic pain medications. He is ambulating. He has not vomited. His labs this am were normal. His vitals are stable. He is still distended but it softer than he was yesterday. The decision was made to discharge home. - Discharge Data Discharge Disposition: Home, Self-Care 01 Condition: Stable - Referral to Home Health Primary Care Physician: PCP None - Discharge Diagnosis/Problem(s) (1) Appendicitis SNOMED Code(s): 84821289 ICD Code: K37 - UNSPECIFIED APPENDICITIS Status: Acute Current Visit: Yes Qualifiers: Appendicitis type: acute appendicitis Acute appendicitis type: with localized peritonitis Appendicitis gangrene presence: with gangrene Appendicitis perforation presence: with perforation Appendicitis abscess presence: without abscess Qualified Code(s): K35.32 - Acute appendicitis with perforation and localized peritonitis, without abscess (2) Postoperative ileus SNOMED Code(s): 451702610 ICD Code: K91.89 - OTH POSTPROCEDURAL COMPLICATIONS AND DISORDERS OF DGSTV SYS; K56.7 - ILEUS, UNSPECIFIED Status: Acute Current Visit: Yes - Patient Summary/Data Operative Procedure(s) Performed: Laparoscopic appendectomy - Patient Instructions Diet: Drink 8-10+ Glasses/Day Diet, Other: Small freqent meals. No alcohol. Activity: No Lifting Over 20 Pounds (for one month after surgery. ), Rest and Relax Today Activity, Other: No work until 01/17/21 Driving: Do Not Drive (for one week after surgery and while taking narcotics) Showering/Bathing: May Shower, No Tub Bathing/Swimming (for 2 weeks ) Wound/Incision Care: Keep Operative Site/Wound Site Clean and Dry Notify Provider of: Fever, Increased Pain, Swelling and Redness, Drainage, Nausea and/or Vomiting - Discharge Plan *PRESCRIPTION DRUG MONITORING PROGRAM REVIEWED*: Yes *COPY OF PRESCRIPTION DRUG MONITORING REPORT IN PATIENT SO: Yes Prescriptions/Med Rec: bisacodyL [Dulcolax] 10 mg RECTAL DAILY #10 supp polyethylene glycoL 3350 [MiraLAX] 17 gm PO DAILY #1 cont Home Medications: Home Meds polyethylene glycoL 3350 [MiraLAX] 17 gm PO DAILY #1 cont 01/06/21 [Rx] bisacodyL [Dulcolax] 10 mg RECTAL DAILY #10 supp 01/07/21 [Rx] Patient Handouts: Laparoscopic Appendectomy, Adult, Care After, [id number], Laparoscopic Appendectomy, Adult, Polyethylene Glycol powder Referrals: Iram Villatoro MD [Physician] - 01/12/21 8:15 am - Patient Data Vitals - Most Recent: Last Vital Signs Temp 36.8 C 01/07/21 08:00 Pulse 94 01/07/21 08:00 Resp 16 01/07/21 08:00 BP 131/85 01/07/21 08:00 Pulse Ox 94 L 01/07/21 08:00 Weight - Most Recent: 84.051 kg I&O - Last 24 hours: Intake & Output 01/07/21 01/07/21 01/07/21 06:59 14:59 22:59 Intake Total 100 Balance 100 Lab Results - Last 24 hrs: Laboratory Results - last 24 hr 01/07/21 01/07/21 Range/Units 05:50 05:50 WBC 10.39 (4.0-11.0) K/uL RBC 4.11 L (4.50-5.90) M/uL Hgb 13.3 (13.0-17.0) g/dL Hct 38.7 (38.0-50.0) % MCV 94.2 (80.0-98.0) fL MCH 32.4 H (27.0-32.0) pg MCHC 34.4 (31.0-37.0) g/dL RDW Std Deviation 39.4 (28.0-62.0) fl RDW Coeff of Ben 12 (11.0-15.0) % Plt Count 327 (150-400) K/uL MPV 9.30 (7.40-12.00) fL Sodium 137 (136-148) mmol/L Potassium 4.7 (3.5-5.1) mmol/L Chloride 100 (98-107) mmol/L Carbon Dioxide 27.9 (21.0-32.0) mmol/L BUN 18 (7.0-18.0) mg/dL Creatinine 1.2 (0.8-1.3) mg/dL Est Cr Clr Drug Dosing 75.28 mL/min Estimated GFR (MDRD) > 60.0 ml/min Glucose 85 (74-106) mg/dL Calcium 8.9 (8.5-10.1) mg/dL Phosphorus 3.3 (2.6-4.7) mg/dL Magnesium 2.1 (1.8-2.4) mg/dL Med Orders - Current: Current Medications Bisacodyl (Bisacodyl 10 Mg Supp) 10 mg RECTAL DAILY PRN PRN Reason: Constipation Calcium Carbonate/Glycine (Calcium Carbonate 500 Mg Tab.Chew) 500 mg PO Q2HR PRN PRN Reason: Indigestion Last Admin: 01/07/21 11:51 Dose: 500 mg Documented by: Ciprofloxacin (Ciprofloxacin 500 Mg Tab) 500 mg PO BID [facility] Last Admin: 01/07/21 08:17 Dose: 500 mg Documented by: Diphenhydramine HCl (Diphenhydramine 50 Mg/Ml Sdv) 50 mg IVPUSH Q4H PRN PRN Reason: Itching Enoxaparin Sodium (Enoxaparin 40 Mg/0.4 Ml Syringe) 40 mg SUBCUT Q24H [facility] Last Admin: 01/06/21 14:45 Dose: 40 mg Documented by: Ketorolac Tromethamine (Ketorolac 10 Mg Tab) 10 mg PO Q6H PRN PRN Reason: Abdominal Pain Stop: 01/12/21 07:46 Metronidazole (Metronidazole 250 Mg Tab) 500 mg PO Q8H [facility] Last Admin: 01/07/21 08:17 Dose: 500 mg Documented by: Ondansetron HCl (Ondansetron 4 Mg/2 Ml Sdv) 4 mg IVPUSH Q6H PRN PRN Reason: Nausea/Vomiting Last Admin: 01/06/21 08:06 Dose: 4 mg Documented by: Oxycodone/Acetaminophen (Acetaminophen/Oxycodone 325-5 Mg Tab) 2 tab PO Q6H PRN PRN Reason: Abdominal Pain Promethazine HCl (Promethazine 25 Mg/Ml Sdv) 25 mg IM Q6H PRN PRN Reason: Nausea Scopolamine (Scopolamine 1.5 Mg Transdermal Patch) 1.5 mg TRDERM Q72H [facility] Last Admin: 01/06/21 10:07 Dose: 1.5 mg Documented by: Sodium Chloride (Sodium Chloride 0.9% 10 Ml Syringe) 10 ml FLUSH ASDIRECTED PRN PRN Reason: Keep Vein Open Sodium Chloride (Sodium Chloride 0.9% 2.5 Ml Syringe) 2.5 ml FLUSH ASDIRECTED PRN PRN Reason: Keep Vein Open Sodium Chloride (Sodium Chloride 0.9% 10 Ml Sdv) 10 ml IV ASDIRECTED PRN PRN Reason: IV Use Discontinued Medications Albuterol (Albuterol 0.083% 2.5 Mg/3 Ml Neb Soln) 2.5 mg NEB ONETIME PRN PRN Reason: Wheezing Bupivacaine HCl (Bupivacaine 0.5% 30 Ml Sdv) Confirm Administered Dose 30 ml .ROUTE .STK-MED ONE Stop: 01/03/21 15:34 Cefazolin Sodium (Cefazolin 1 Gm Vial) Confirm Administered Dose 1 gm .ROUTE .STK-MED ONE Stop: 01/03/21 17:58 Cefazolin Sodium (Cefazolin 1 Gm Vial) Confirm Administered Dose 1 gm .ROUTE .STK-MED ONE Stop: 01/03/21 18:42 Ciprofloxacin (Ciprofloxacin 500 Mg Tab) 500 mg PO BID [facility] Last Admin: 01/05/21 20:18 Dose: 500 mg Documented by: Droperidol (Droperidol 5 Mg/2 Ml Sdv) 0.625 mg IVPUSH ONETIME PRN PRN Reason: Nausea/Vomiting Fentanyl (Fentanyl 250 Mcg/5 Ml Sdv) Confirm Administered Dose 250 mcg .ROUTE .STK-MED ONE Stop: 01/03/21 16:12 Fentanyl (Fentanyl 100 Mcg/2 Ml Sdv) 50 mcg IVPUSH Q5M PRN PRN Reason: Pain Glycopyrrolate (Glycopyrrolate 0.2 Mg/Ml Sdv) Confirm Administered Dose 0.2 mg .ROUTE .STK-MED ONE Stop: 01/03/21 16:13 Hydromorphone HCl (Hydromorphone 1 Mg/Ml Syringe) 1 mg IVPUSH ONETIME ONE Stop: 01/03/21 10:52 Last Admin: 01/03/21 11:08 Dose: 1 mg Documented by: Hydromorphone HCl (Hydromorphone 2 Mg/Ml Syringe) 0.5 mg IVPUSH Q10M PRN PRN Reason: Pain (moderate 4-6) Hydromorphone HCl (Hydromorphone 1 Mg/Ml Syringe) 0.5 mg IVPUSH Q1H PRN PRN Reason: Pain (severe 7-10) Last Admin: 01/04/21 06:41 Dose: 0.5 mg Documented by: Hydromorphone HCl (Hydromorphone 2 Mg/Ml Syringe) Confirm Administered Dose 2 mg .ROUTE .STK-MED ONE Stop: 01/03/21 17:18 Hydromorphone HCl (Hydromorphone 2 Mg/Ml Syringe) Confirm Administered Dose 2 mg .ROUTE .STK-MED ONE Stop: 01/03/21 17:42 Sodium Chloride (Normal Saline) 1,000 mls @ 999 mls/hr IV STAT ONE Stop: 01/03/21 11:51 Last Admin: 01/03/21 11:08 Dose: 999 mls/hr Documented by: Piperacillin Sod/Tazobactam (Sod 3.375 gm/ Sodium Chloride) 50 mls @ 100 mls/hr IV ONETIME ONE Stop: 01/03/21 13:30 Last Admin: 01/03/21 14:10 Dose: 100 mls/hr Documented by: Lactated Ringer's (Ringers, Lactated) 1,000 mls @ 125 mls/hr IV ASDIRECTED [facility] Last Admin: 01/07/21 04:15 Dose: 125 mls/hr Documented by: Piperacillin Sod/Tazobactam (Sod 3.375 gm/ Sodium Chloride) 50 mls @ 100 mls/hr IV Q6H [facility] Last Admin: 01/05/21 15:15 Dose: 100 mls/hr Documented by: Lactated Ringer's (Ringers, Lactated) 1,000 mls @ 125 mls/hr IV ASDIRECTED [facility] Last Admin: 01/04/21 04:24 Dose: 125 mls/hr Documented by: Acetaminophen 1,000 mg/ Premix 100 mls @ 400 mls/hr IV Q6H PRN PRN Reason: Pain Lactated Ringer's (Ringers, Lactated) 1,000 mls @ 125 mls/hr IV ASDIRECTED [facility] Last Admin: 01/06/21 19:13 Dose: 125 mls/hr Documented by: Piperacillin Sod/Tazobactam (Sod 3.375 gm/ Sodium Chloride) 50 mls @ 100 mls/hr IV Q6H [facility] Last Admin: 01/07/21 02:38 Dose: 100 mls/hr Documented by: Acetaminophen 1,000 mg/ Premix 100 mls @ 400 mls/hr IV ONETIME PRN PRN Reason: PAIN Ketorolac Tromethamine (Ketorolac 30 Mg/Ml Sdv) Confirm Administered Dose 30 mg .ROUTE .STK-MED ONE Stop: 01/03/21 16:13 Ketorolac Tromethamine (Ketorolac 30 Mg/Ml Sdv) 30 mg IVPUSH Q6H [facility] Stop: 01/08/21 19:29 Last Admin: 01/05/21 14:04 Dose: 30 mg Documented by: Ketorolac Tromethamine (Ketorolac 10 Mg Tab) 10 mg PO Q6H [facility] Stop: 01/07/21 19:31 Last Admin: 01/06/21 06:32 Dose: 10 mg Documented by: Ketorolac Tromethamine (Ketorolac 15 Mg/Ml Sdv) 15 mg IVPUSH Q6H [facility] Stop: 01/11/21 08:16 Last Admin: 01/07/21 02:39 Dose: 15 mg Documented by: Lidocaine (Lidocaine 2% 5 Ml Sdv) Confirm Administered Dose 5 ml .ROUTE .STK-MED ONE Stop: 01/03/21 16:13 Metoclopramide HCl (Metoclopramide 10 Mg/2 Ml Sdv) 10 mg IVPUSH ONETIME PRN PRN Reason: Nausea/Vomiting Metoclopramide HCl (Metoclopramide 10 Mg/2 Ml Sdv) 10 mg IVPUSH Q6H PRN PRN Reason: Nausea Last Admin: 01/06/21 03:23 Dose: 10 mg Documented by: Metronidazole (Metronidazole 250 Mg Tab) 500 mg PO Q8HR [facility] Last Admin: 01/06/21 06:32 Dose: 500 mg Documented by: Midazolam HCl (Midazolam 1 Mg/Ml 2 Ml Sdv) Confirm Administered Dose 2 mg .ROUTE .STK-MED ONE Stop: 01/03/21 16:12 Morphine Sulfate (Morphine 2 Mg/Ml Syringe) 2 mg IVPUSH Q10M PRN PRN Reason: Pain (severe 7-10) Morphine Sulfate (Morphine 4 Mg/Ml Syringe) 4 mg IVPUSH ONETIME ONE Stop: 01/03/21 12:50 Last Admin: 01/03/21 13:07 Dose: 4 mg Documented by: Naloxone HCl (Naloxone 0.4 Mg/Ml Syringe) 0.1 mg IVPUSH ASDIRECTED PRN PRN Reason: Respiratory Depression Octyl Cyanoacrylate (Octyl 2-Cyanoacrylate 1 Tube) Confirm Administered Dose 1 applic .ROUTE .STK-MED ONE Stop: 01/03/21 15:34 Ondansetron HCl (Ondansetron 4 Mg/2 Ml Sdv) 4 mg IVPUSH ONETIME ONE Stop: 01/03/21 10:52 Last Admin: 01/03/21 11:08 Dose: 4 mg Documented by: Ondansetron HCl (Ondansetron 4 Mg/2 Ml Sdv) 4 mg IVPUSH ONETIME PRN PRN Reason: Nausea/Vomiting Ondansetron HCl (Ondansetron 4 Mg/2 Ml Sdv) 4 mg IVPUSH ONETIME ONE Stop: 01/03/21 12:50 Last Admin: 01/03/21 13:12 Dose: 4 mg Documented by: Ondansetron HCl (Ondansetron 4 Mg/2 Ml Sdv) Confirm Administered Dose 4 mg .ROUTE .STK-MED ONE Stop: 01/03/21 16:13 Oxycodone/Acetaminophen (Acetaminophen/Oxycodone 325-5 Mg Tab) 2 tab PO Q4H PRN PRN Reason: Pain (severe 7-10) Last Admin: 01/06/21 03:09 Dose: 2 tab Documented by: Polyethylene Glycol (Polyethylene Glycol 3350 Powder 17 Gm Packet) 17 gm PO DAILY [facility] Last Admin: 01/05/21 08:53 Dose: 17 gm Documented by: Propofol (Propofol 200 Mg/20 Ml Sdv) Confirm Administered Dose 200 mg .ROUTE .STK-MED ONE Stop: 01/03/21 16:12 Propofol (Propofol 200 Mg/20 Ml Sdv) Confirm Administered Dose 200 mg .ROUTE .STK-MED ONE Stop: 01/03/21 17:35 Rocuronium [place] (Rocuronium [place] 50 Mg/5 Ml Syringe) Confirm Administered Dose 50 mg .ROUTE .STK-MED ONE Stop: 01/03/21 16:13 Rocuronium [place] (Rocuronium [place] 50 Mg/5 Ml Syringe) Confirm Administered Dose 50 mg .ROUTE .STK-MED ONE Stop: 01/03/21 17:35 Scopolamine (Scopolamine 1.5 Mg Transdermal Patch) 1.5 mg TRDERM ONETIME ONE Stop: 01/03/21 15:46 Last Admin: 01/03/21 16:08 Dose: 1.5 mg Documented by: Senna/Docusate Sodium (Docusate Sodium/Sennosides 50-8.6 Mg Tab) 1 tab PO ONETIME ONE Stop: 01/06/21 07:48 Last Admin: 01/06/21 09:36 Dose: 1 tab Documented by: Sugammadex Sodium (Sugammadex Sodium 200 Mg/2 Ml Vial) Confirm Administered Dose 200 mg .ROUTE .STK-MED ONE Stop: 01/03/21 16:13
[2021-01-07] MEDS: Enoxaparin 40 MG/0.4 ML Syringe SUBCUT SCH (16:05)
[2021-01-07] MEDS: Ondansetron 4 MG/2 ML SDV IVPUSH PRN (16:05)
== END 2021-01-07 17:07 | disposition home or self-care (01) | DRG 233 ==
LOC: MW.ED 10:26 → MW.SDS 13:55 → MW.MS 14:19 → MW.SDS 01-04 14:35 → MW.MS 01-04 14:36 → OBSVTOIN 01-06 08:14 → MW.MS 01-06 16:18
PROVIDERS: ADMIT Surgery; ATTEND Surgery
PROC: 0DTJ0ZZ Resection of Appendix, Open Approach (ICD-10-PCS; principal; 2021-01-03)
PROC: 0WJG4ZZ Inspection of Peritoneal Cavity, Percutaneous Endoscopic Approach (ICD-10-PCS; 2021-01-03)
DX: K35.32 Acute appendicitis with perforation, localized peritonitis, and gangrene, without abscess (principal); K91.89 Other postprocedural complications and disorders of digestive system; K56.7 Ileus, unspecified; K42.9 Umbilical hernia without obstruction or gangrene; Z20.822 Contact with and (suspected) exposure to COVID-19
CPT/HCPCS: 36415; 74018; 74018-26; 74177; 74177-26; 80048; 80053; 81001; 83690; 83735; 84100; 85025; 85027; 88304; 96374; 96375; 96376; 99284; 99285-25; A9270-GY; C1776; J0690; J1170; J1650; J1885; J2250; J2270; J2405; J2543; J2704; J2765; J3010; J3490; J7030; J7120; U0002